=== PATIENT | female | born 1960 | race Caucasian/White ===

== ENCOUNTER 2024-10-14 10:20 | Outpatient (OUT) | payer MEDICARE, BC, SELFPAY ==
[2024-10-14 11:34] LABS: Basophils Percent Auto 0.6 % (0.2-2.0); Eosinophils Absolute Auto 0.1 10^3/uL (0.0-0.7); Eosinophils Percent Auto 1.5 % (0.9-7.0); Hematocrit 43.3 % (36.0-48.0); Hemoglobin 14.5 g/dL (12.0-16.0); Immature Granulocytes Abs Auto 0.03 10^3/uL (0.00-0.03); Immature Granulocytes Pct Auto 0.4 % (0.0-0.5); Lymphocytes Absolute Auto 2.4 10^3/uL (1.2-3.8); Lymphocytes Percent Auto 33.8 % (20.5-60.0); Mean Corpuscular HGB Conc 33.5 g/dL (29.9-35.2); Mean Corpuscular Hemoglobin 29.7 pg (26.7-34.0); Mean Corpuscular Volume 88.5 fL (81.0-99.0); Mean Platelet Volume 9.9 fL (9.5-13.5); Monocytes Absolute Auto 0.6 10^3/uL (0.3-0.8); Monocytes Percent Auto 8.1 % (1.7-12.0); Neutrophils Percent Auto 55.6 % (43.0-75.0); Platelet Count 320 10^3/uL (150-450); Red Blood Count 4.89 10^6/uL (4.20-5.40); Red Cell Distribution Width 12.2 % (11.0-15.0); White Blood Count 7.2 10^3/uL (4.0-11.0)
[2024-10-14 11:55] LABS: Alanine Aminotransferase 37 U/L (14-59); Albumin Globulin Ratio 1.1; Albumin Level 3.9 g/dL (3.4-5.0); Alkaline Phosphatase 111 U/L (46-116); Anion Gap 10.5; Aspartate Amino Transferase 19 U/L (15-37); Bilirubin Total 0.6 mg/dL (0.2-1.0); Calcium 9.7 mg/dL (8.5-10.1); Carbon Dioxide 29.9 mmol/L (21.0-32.0); Chloride 102 mmol/L (98-107); Chol HDL Ratio 2.9; Cholesterol 169 mg/dL (<=200); Estimated GFR (African America >60 (>=60 mL/min/1.73m^2); Estimated GFR (Non-African Ame 55 (>=60 mL/min/1.73m^2); Globulin 3.5 g/dL; Glucose 103 mg/dL (74-106); HDL Cholesterol 58 mg/dL (40-60); Potassium 4.4 mmol/L (3.5-5.1); Sodium 138 mmol/L (136-145); Total Protein 7.4 g/dL (6.4-8.2); Triglycerides 145 mg/dL (<=150)
[2024-10-15 07:09] LABS: Measles Antibodies, IgG >300.0 AU/mL (Immune >16.4); Mumps Abs, IgG >300.0 AU/mL (Immune >10.9)
== END 2024-10-14 10:21 | disposition home or self-care (01) ==
PROVIDERS: PCP Nurse Practitioner Family; Visit Provider Nurse Practitioner Family
DX: E78.5 Hyperlipidemia, unspecified (principal); I10 Essential (primary) hypertension; Z28.39 Other underimmunization status
CPT/HCPCS: 36415; 80053; 80061; 85025; 86735; 86762; 86765

== ENCOUNTER 2024-10-25 09:42 | Outpatient (OUT) | payer MEDICARE, BC, SELFPAY ==
--- OUTSIDE RECORDS SUMMARY | 2024-10-25 09:48 | XMS_ITS | CCD ---
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 Esthela Branham Referring Unavailable Carrol, Dr. Proctor Attending Unavailable Carrol, Dr. Proctor Primary Care Unavailable MD ESTHELA BRANHAM Primary Care Unavail able Yary, Dr. Maribel Bonilla Referring Unavailab evita Pringle, Dr. Maribel Bonilla Attending Unavailab MD ESTHELA Cunningham Referring Unavail able MD ESTHELA BRANHAM Attending Unavail able MD ESTHELA BRANHAM Primary Care Unavail able ESTHELA BRANHAM MD Attending Unavailable ESTHELA BRANHAM Primary Care Unavailable Esthela Branham MD Primary Care Provider Esthela Branham MD Unavailable [phone] ESTHELA BRANHAM Referring Unavailable ESTHELA BRANHAM Primary Care Unavailable ESTHELA BRANHAM Referring Unavailable ESTHELA BRANHAM Primary Care Unavailable ESTHELA BRANHAM Attending Unavailable ESTHELA BRANHAM Primary Care Unavailable MARIBEL PRINGLE Attending Unavailable ESTHELA BRANHAM Primary Care Unavailable Medications Current Medications Medication Drug Class(es) Dates Sig (Normalized) Sig (Original) amLODIPine 5 mg / benazepril hydrochloride 10 mg oral capsule (15 sources) Dihydropyridine Calcium Channel Eliezer, Angiotensin Converting Enzyme Inhibitor Start: 10-14-2024 End: 10-14-2024 take 1 capsule by mouth once daily Amlodipine-Benaz epril 5-10 mg capsule Active 1 CAP PO Daily 90 October 14, 2024 9:50am Start: 10-16-2020 End: 10-13-2023 take 1 capsule by mouth once daily amLODIPine-benazepriL (Lotrel) 5-10 mg capsule Indications: Benign essential hypertension Take 1 capsule by mouth once daily. 90 capsule 3 10/13/2023 Active atorvastatin 20 mg oral tablet (15 sources) HMG-CoA Reductase Inhibitor Start: 10-14-2024 End: 10-14-2024 take 1 tablet by mouth once daily Atorvastatin 20 mg tablet Active 20 MG PO Daily October 14, 2024 9:50am Start: 10-29-2020 End: 10-13-2023 take 1 tablet by mouth once daily atorvastatin (Lipitor) 20 mg tablet Indications: Mixed hyperlipidemia Take 1 tablet (20 mg) by mouth once daily. 90 tablet 3 10/13/2023 Active calcium citrate 1500 mg / cholecalciferol 250 unt oral tablet (1 source) Vitamin D Start: 10-14-2024 take 1 tablet by mouth once daily Calcium Citrate-Vitamin D3 (Citracal + D Maximum) 315 mg-6.25 mcg (250 unit) tablet Active 1 TAB PO Daily October 14, 2024 12:00am Carboxymethylcellulose Sodium (Artificial Tears (Cmc)) 1 % drops (1 source) Start: 10-14-2024 Carboxymethylcellulose Sodium (Artificial Tears (Cmc)) 1 % drops Active 1 DROPS EYE-BOTH 4-6 TIMES PER DAY as needed October 14, 2024 12:00am cycloSPORINE 0.5 mg/ml ophthalmic suspension (10 sources) Calcineurin Inhibitor Immunosuppressant Start: 10-14-2024 take 1 drop(s) into the eye(s) every twelve hours Cyclosporine 0.05 % drops Active 1 DROPS EYE-BOTH Every 12 hours October 14, 2024 12:00am Start: 02-26-2021 take 1 drop(s) into the eye(s) once daily cycloSPORINE 0.05 % Ophthalmic Emulsion INSTILL 1 DROP IN BOTH EYES EVERY 12 HOURS DAILY. Quantity: 3 Refills: 3 Ordered: 08-Feb-2022 Maribel Pringle MD Start : 26-Feb-2021 Active desonide 0.5 mg/ml topical cream (9 sources) Corticosteroid Start: 10-14-2024 Desonide 0.05 % cream Active 1 APPLIC TOPICAL .twice per week October 14, 2024 12:00am Start: 05-31-2021 Desonide 0.05 % External Cream Quantity: 60 Refills: 0 Ordered: 31-May-2021 DO Start : 31-May-2021 Active loratadine 10 mg oral tablet (1 source) Start: 10-14-2024 Loratadine (Cl aritin) 10 mg tablet Active 10 MG PO .PRN October 14, 2024 12:00am Magnesium (20 sources) Start: 10-14-2024 take 1 tablet by mouth once daily Magnesium 250 mg tablet Active 250 MG PO Daily October 14, 2024 12:00am Start: 09-03-2014 Magnesium 250 MG Oral Tablet Quantity: 0 Refills: 0 Ordered: 03-Sep-2014 DO Start : 03-Sep-2014 Active Start: 09-03-2014 Magnesium 250 MG Oral Tablet Refills: 0 DO Start : 03-Sep-2014 Active Start: 09-03-2014 Magnesium 250 MG Oral Tablet Refills: 0 Start : 03-Sep-2014 Active Multivit With Min-Folic Acid (One-A-Day Women's 50 Plus) 0.4 mg tablet (1 source) Start: 10-14-2024 take 1 tablet by mouth once Multivit With Min-Folic Acid (One-A-Day Women's 50 Plus) 0.4 mg tablet Active TAB PO October 14, 2024 12:00am pimecrolimus 10 mg/ml topical cream (9 sources) Calcineurin Inhibitor Immunosuppressant Start: 10-14-2024 Pimecrolimus 1 % cream Active 1 APPLIC TOPICAL Twice daily October 14, 2024 12:00am Start: 05-31-2021 Pimecrolimus 1 % External Cream Quantity: 100 Refills: 0 Ordered: 31-May-2021 DO Start : 31-May-2021 Active prednisoLONE acetate 10 mg/ml ophthalmic suspension (20 sources) Corticosteroid Start: 10-14-2024 take 1 drop(s) into the eye(s) once daily Prednisolone Acetate 1 % drops,suspension Active 1 DROPS EYE-BOTH Daily October 14, 2024 12:00am take 1 drop(s) into the eye(s) once daily prednisoLONE Acetate 1 % Ophthalmic Suspension Instill one drop in both eyes daily Quantity: 1 Refills: 3 Ordered: 09-Feb-2023 Maribel Pringle MD Active take 1 drop(s) into the eye(s) once daily prednisoLONE Acetate 1 % Ophthalmic Suspension Instill one drop in both eyes daily Quantity: 3 Refills: 3 Ordered: 08-Feb-2022 Maribel Pringle MD Active take 1 drop(s) into the eye(s) once daily prednisoLONE Acetate 1 % Ophthalmic Suspension Instill one drop in both eyes daily Quantity: 3 Refills: 6 Ordered: 26-Feb-2021 Maribel Pringle MD Active take 1 drop(s) into the eye(s) once daily prednisoLONE Acetate 1 % Ophthalmic Suspension Instill one drop in both eyes daily Quantity: 3 Refills: 6 Maribel Pringle MD Active 10 ML Bottle take 1 drop(s) into the eye(s) once daily in the morning prednisoLONE Acetate 1 % Ophthalmic Suspension APPLY 1 DROP Daily every morning both eyes Quantity: 3 Refills: 2 Maribel Pringle Active 10 ML Bottle take 1 drop(s) into the eye(s) once daily in the morning prednisoLONE Acetate 1 % Ophthalmic Suspension APPLY 1 DROP Daily every morning both eyes Quantity: 1 Refills: 2 Bryan Resendiz Active 10 ML Bottle sodium chloride 0.111 meq/ml nasal spray (15 sources) Start: 10-14-2024 Sodium Chlorid e (Saline Nasal) 0.65 % aerosol,spray Active 1 SPRAY INTRANASAL Twice daily as needed October 14, 2024 12:00am Start: 10-07-2019 Saline Nasal S pray 0.65 % Nasal Solution Quantity: 0 Refills: 0 Ordered: 07-Oct-2019 DO Start : 07-Oct-2019 Active Start: 10-07-2019 Saline Nasal S pray 0.65 % Nasal Solution Refills: 0 Start : 07-Oct-2019 Active 30 ML Bottle Start: 10-07-2019 Saline Nasal S pray 0.65 % Nasal Solution Refills: 0 DO Start : 07-Oct-2019 Active 30 ML Bottle Completed/Discontinued Medications Medication Drug Class(es) Dates Sig (Normalized) Sig (Original) acetaminophen 500 mg / diphenhydrAMINE hydrochloride 25 mg oral tablet (11 sources) Histamine-1 Receptor Antagonist Start: 10-09-2020 take 8 tablets by mouth in the evening Tylenol PM Extra Strength 500-25 MG Oral Tablet Quantity: 0 Refills: 0 Ordered: 09-Oct-2020 DO Start : 09-Oct-2020 Active amLODIPine 5 mg oral tablet (8 sources) Dihydropyridine Calcium Channel Eliezer Start: 02-01-2019 take 1 tablet by mouth once daily amLODIPine Besylate 5 MG Oral Tablet TAKE 1 TABLET DAILY DIRECTED. Quantity: 1 Refills: 3 Esthela Branham MD Start : 01-Feb-2019 Active 90 Tablet Bottle ascorbic acid 500 mg oral capsule (19 sources) Vitamin C Start: 09-03-2014 Vitamin C 500 MG Oral Capsule Quantity: 0 Refills: 0 Ordered: 03-Sep-2014 DO Start : 03-Sep-2014 Active Start: 09-03-2014 Vitamin C 500 MG Oral Capsule Refills: 0 Start : 03-Sep-2014 Active aspirin 81 mg delayed release oral tablet (5 sources) Platelet Aggregation Inhibitor, Nonsteroidal Anti-inflammatory Drug Start: 12-03-2018 Aspirin 81 MG Ora l Tablet Delayed Release Refills: 0 Start : 03-Dec-2018 Active Citracal Plus Oral Tablet (9 sources) Start: 09-03-2014 Citracal Plus Oral Tablet Refills: 0 DO Start : 03-Sep-2014 Active Start: 09-03-2014 Citracal Plus Oral Tablet Refills: 0 Start : 03-Sep-2014 Active Citracal Plus Oral Tablet (10 sources) Start: 09-03-2014 Citracal Plus Oral Tablet Quantity: 0 Refills: 0 Ordered: 03-Sep-2014 DO Start : 03-Sep-2014 Active cycloSPORINE 0.05 % Ophthalmic Emulsion (1 source) Start: 02-26-2021 take 1 drop(s) into the eye(s) once daily cycloSPORINE 0.05 % Ophthalmic Emulsion INSTILL 1 DROP IN BOTH EYES EVERY 12 HOURS DAILY. Quantity: 3 Refills: 3 Ordered: 09-Feb-2023 Maribel Pringle MD Start : 26-Feb-2021 Active dextran 70 1 mg/ml / hypromellose 3 mg/ml ophthalmic solution (19 sources) Plasma Volume Cottage Parent Artificial Tears 0.1-0.3 % Ophthalmic Solution INSTILL 1 DROP TO BOTH EYES 2 X DAY Quantity: 0 Refills: 0 Ordered: 13-Mar-2019 DO Active diphenhydrAMINE hydrochloride 25 mg oral tablet (11 sources) Histamine-1 Receptor Antagonist Start: 10-09-2020 Benadryl Allergy 25 MG Oral Tablet Quantity: 0 Refills: 0 Ordered: 09-Oct-2020 DO Start : 09-Oct-2020 Active Start: 10-09-2020 Benadryl Aller gy 25 MG Oral Tablet Refills: 0 Start : 09-Oct-2020 Active docosahexaenoic acid 120 mg / eicosapentaenoic acid 180 mg oral capsule (11 sources) Start: 09-03-2014 Fish Oil Janine ntrate 1000 MG Oral Capsule Quantity: 0 Refills: 0 Ordered: 03-Sep-2014 DO Start : 03-Sep-2014 Active Start: 09-03-2014 Fish Oil Janine ntrate 1000 MG Oral Capsule Refills: 0 Start : 03-Sep-2014 Active doxycycline hyclate 100 mg oral capsule (8 sources) Tetracycline-class Drug Start: 05-31-2021 Doxycy goyal Hyclate 100 MG Oral Capsule Quantity: 60 Refills: 0 Ordered: 31-May-2021 DO Start : 31-May-2021 Active Multivitamins CAPS (8 sources) Start: 09-03-2014 Multivitamins CAPS Quantity: 0 Refills: 0 Ordered: 03-Sep-2014 DO Start : 03-Sep-2014 Active Multivitamins Oral Capsule (9 sources) Start: 09-03-2014 Multivitamins Oral Capsule Refills: 0 DO Start : 03-Sep-2014 Active Start: 09-03-2014 Multivitamins Oral Capsule Refills: 0 Start : 03-Sep-2014 Active Multivitamins Oral Capsule (2 sources) Start: 09-03-2014 Multivitamins Oral Capsule Quantity: 0 Refills: 0 Ordered: 03-Sep-2014 DO Start : 03-Sep-2014 Active omega-3 acid ethyl esters (longterm) 1000 mg oral capsule (8 sources) Start: 09-03-2014 Fish Oil Janine ntrate 1000 MG Oral Capsule Refills: 0 DO Start : 03-Sep-2014 Active triamcinolone acetonide 1 mg/ml topical cream (19 sources) Corticosteroid Start: 01-27-2017 Triamcinolone Acetonide 0.1 % External Cream APPLY AND RUB IN A THIN FILM TO AFFECTED AREAS TWICE DAILY.(AM AND PM). Quantity: 1 Refills: 1 Ordered: 27-Jan-2017 Esthela Branham MD Start : 27-Jan-2017 Active Start: 01-27-2017 Triamcinolone Acetonide 0.1 % External Cream APPLY AND RUB IN A THIN FILM TO AFFECTED AREAS TWICE DAILY.(AM AND PM). Quantity: 1 Refills: 1 Esthela Branham MD Start : 27-Jan-2017 Active 45 GM Tube Problems Active Problems Problem Classification Problem Date Documented Date Episodic/Chronic Allergic reactions (19 sources) Atopic dermatitis; Translations: [Other atopic dermatitis and related conditions] Chronic Anxiety disorders (19 sources) Anxiety; Translations: [Anxiety state, unspecified] Chronic Cataract (20 sources) After-cataract with vision obscured; Translations: [Pseudophakia] Onset: 4 Chronic Complications of surgical procedures or medical care (2 sources) Not up to date with immunizations; Translations: [Delinquent immunization status] 10-14-2024 Episodic Disorders of lipid metabolism (17 sources) Hyperlipidemia; Translations: [Other and unspecified hyperlipidemia] Onset: 4 10-13-2023 Chronic Essential hypertension (20 sources) Benign essential hypertension; Translations: [Benign essential hypertension] Onset: 4 10-13-2023 Chronic Inflammation; infection of eye (except that caused by tuberculosis or sexually transmitteddisease) (11 sources) Unspecified blepharitis right eye, unspecified eyelid; Translations: [Blepharitis of right eyelid] Episodic Malaise and fatigue (8 sources) Fatigue; Translations: [Chronic fatigue] Episodic Other connective tissue disease (19 sources) Ganglion of wrist; Translations: [Ganglion of joint] Episodic Other eye disorders (9 sources) H/O: cornea recipient; 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 Other eye disorders (2 sources) Corneal transplant status; Translations: [Corneal transplant status] Onset: 4 Chronic Other eye disorders (19 sources) Fuchs' corneal dystrophy; 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] Episodic Other eye disorders (10 sources) Dry eye syndrome of right eye; Translations: [Tear film insufficiency, unspecified] Episodic Other eye disorders (10 sources) Dry eye syndrome of left eye; Translations: [Tear film insufficiency, unspecified] Episodic Other nervous system disorders (1 source) Pain in limb - multiple; Translations: [Paresthesia of skin] 10-14-2024 Episodic Other nervous system disorders (1 source) Paresthesia of skin; Translations: [Disturbance of skin sensation] 10-14-2024 Episodic Other nutritional; endocrine; and metabolic disorders (3 sources) Overweight in adulthood with body mass index of 25 or more but less than 30; Translations: [Overweight] Episodic Poisoning by other medications and drugs (17 sources) Vaccines adverse reaction; Translations: [Other and unspecified vaccines and biological substances causing adverse effects in therapeutic use] Episodic Residual codes; unclassified (1 source) Postmenopausal state; Translations: [Asymptomatic menopausal state] 10-13-2023 Episodic Screening and history of mental health and substance abuse codes (19 sources) H/O: depression; Translations: [Personal history of other mental disorders] Episodic Systemic lupus erythematosus and connective tissue disorders (20 sources) Keratoconjunctivitis sicca; Translations: [Keratoconjunctivitis sicca, not specified as Sjogren's] Onset: 10-13-2023 Chronic Past or Other Problems Problem Classification Problem Date Documented Da te Episodic/Chronic Cataract (8 sources) Pseudophakia of right eye; Translations: [History of Pseudophakia of right eye] Diabetes mellitus without complication (4 sources) Prediabetes; Translations: [Prediabetes] Onset: 10-13-2023 10-13-2023 Episodic E Codes: Fall (10 sources) Accidental fall ; Translations: [Unspecified fall] Resolved: 10-29-2020 Episodic External cause codes: Fall (5 sources) Accidental fall ; Translations: [Accidental fall] Immunizations and screening for infectious disease (3 sources) Viral screening status; Translations: [Encounter for screening for other viral diseases] Onset: 10-13-2023 10-13-2023 Episodic Inflammation; infection of eye (except that caused by tuberculosis or sexually transmitteddisease) (8 sources) Blepharitis of right eyelid; Translations: [Blepharitis of right eye] Mood disorders (1 source) Recurrent major depression in remission; Translations: [Major depressive disorder, recurrent, in remission, unspecified] Onset: 10-13-2023 Resolved: 10-13-2023 10-13-2023 Chronic Nonspecific chest pain (19 sources) Chest discomfort; Translations: [Other chest pain] Resolved: 10-29-2020 Episodic Other connective tissue disease (19 sources) Hand pain; Translations: [Pain in limb] Resolved: 10-29-2020 Episodic Other connective tissue disease (11 sources) Trigger thumb, right thumb; Translations: [Trigger thumb of right hand] Resolved: 10-29-2020 Episodic Other connective tissue disease (8 sources) Trigger thumb of right hand; Translations: [Trigger thumb of right hand] Other eye disorders (7 sources) Tear film insufficiency; Translations: [Dry eye syndrome of left lacrimal gland] Episodic Other eye disorders (2 sources) Dry eye syndrome of unspecified lacrimal gland; Translations: [Dry eye syndrome of unspecified lacrimal gland] Onset: 02-13-2024 Episodic Other eye disorders (6 sources) Dry eye syndrome of right eye; Translations: [Dry eye syndrome of right lacrimal gland] Other eye disorders (5 sources) Dry eye syndrome of left eye; Translations: [Dry eye syndrome of left lacrimal gland] Other female genital disorders (19 sources) Endocervical polyp; Translations: [Mucous polyp of cervix] Resolved: 10-29-2020 Episodic Other injuries and conditions due to external causes (16 sources) Injury of ankle; Translations: [Knee, leg, ankle, and foot injury] Resolved: 10-29-2020 Episodic Other lower respiratory disease (19 sources) Dyspnea on exertion; Translations: [Other respiratory abnormalities] Resolved: 10-29-2020 Episodic Other non-traumatic joint disorders (19 sources) Pain in wrist; Translations: [Pain in joint, forearm] Resolved: 10-29-2020 Episodic Other nutritional; endocrine; and metabolic disorders (19 sources) Excessive thirst; Translations: [Polydipsia] Resolved: 10-29-2020 Episodic Other screening for suspected conditions (not mental disorders or infectious disease) (20 sources) Patient encounter status; Translations: [Screening for malignant neoplasms of cervix] Onset: 10-28-2022 Episodic Residual codes; unclassified (10 sources) History of clinical finding in subject; Translations: [Personal history of other specified diseases] Resolved: 10-29-2020 Episodic Residual codes; unclassified (6 sources) Body mass index 20-24 - normal; Translations: [Body Mass Index between 19-24, adult] Resolved: 10-25-2022 Episodic Residual codes; unclassified (4 sources) Asymptomatic menopausal state; Translations: [Asymptomatic menopausal state] Onset: 10-13-2023 Episodic Superficial injury; contusion (15 sources) Contusion of face; Translations: [Contusion of face, scalp, and neck except eye(s)] Resolved: 10-29-2020 Episodic Unclassified (5 sources) Patient encounter status; Translations: [Encounter for screening for cervical cancer] Unclassified (1 source) History of clinical finding in subject; Translations: [History of chronic fatigue] Unclassified (1 source) Onset: 10-13-2023 10-13-2023 NEGATED: Highlighted row has not occurred!Residual codes; unclassified (20 sources) Disease Episodic Results Test Name Value Interpretation Reference Range Facility BI MAMMO BILATERAL SCREENING TOMOSYNTHESISon 11-09-2023 BI MAMMO BILATERAL SCREENING TOMOSYNTHESIS Interpreted By: Monster Blake, STUDY: BI MAMMO BILATERAL SCREENING TOMOSYNTHESIS; 11/09/2023 9:22 am ACCESSION NUMBER(S): [id number] ORDERING CLINICIAN: ESTHELA BRANHAM INDICATION: Screening. COMPARISON: 10/28/2022 FINDINGS: 2D and tomosynthesis images were reviewed at 1 mm slice thickness. Density: The breast tissue is heterogeneously dense, which may obscure small masses. No suspicious masses or calcifications are identified. There are stable areas of asymmetry bilaterally. This study was interpreted with CAD. IMPRESSION: No mammographic evidence of malignancy. BI-RADS CATEGORY: BI-RADS Category: 1 Negative. Recommendation: Annual Screening. Recommended Date: 1 Year. Laterality: Bilateral. For any future breast imaging appointments, please call [phone]). MACRO: None Signed by: Monster Blake 11/09/2023 9:25 AM Dictation workstation: [id number] [facility] DEXA BONE DENSITYon 11-09-19 DEXA BONE DENSITY Interpreted By: Satish Valverde, STUDY: DEXA BONE DENSITY11/09/2023 9:21 am INDICATION: Signs/Symptoms:scsree jordyn. The patient is a 63 y/o year old F. COMPARISON: None. ACCESSION NUMBER(S): [id number] ORDERING CLINICIAN: ESTHELA BRANHAM TECHNIQUE: DEXA BONE DENSITY FINDINGS: SPINE L1-L4 Bone Mineral Density: 1.139 T-Score -0.4 Z-Score 0.9 Bone Mineral Density change vs baseline: Not reported Bone Mineral Density change vs previous: Not reported LEFT FEMUR -TOTAL Bone Mineral Density: 0.865 T-Score -1.1 Z-Score -0.1 Bone Mineral Density change vs baseline: Not reported Bone Mineral Density change vs previous: Not reported LEFT FEMUR -NECK Bone Mineral Density: 0.847 T-Score -1.4 Z-Score 0.0 Bone Mineral Density change vs baseline: Not reported Bone Mineral Density change vs previous: Not reported World Health Organization (WHO) criteria for post-menopausal, Women: Normal: T-score at or above -1 SD Osteopenia: T-score between -1 and -2.5 SD Osteoporosis: T-score at or below -2.5 SD 10-year Fracture Risk: Major Osteoporotic Fracture 8.7 Hip Fracture 0.9 Note: If no FRAX score is reported, it is because: Some T-score for Spine Total or Hip Total or Femoral Neck at or below -2.5 This exam was performed at [facility] on a [email or web address] Dexa Unit. IMPRESSION: DEXA: According to World Health Organization criteria, classification is low bone mass (osteopenia) Followup recommended in two years or sooner as clinically warranted. All images and detailed analysis are available on the Radiology PACS. MACRO: None Signed by: Satish Valverde 11/09/2023 10:02 AM Dictation workstation: [id number] [facility] Cytology Cervical or vaginal smear or scraping studyOrdered By: Amy Jimenez on 10-31-2023 Cytology study comment Cyto stain Anthony (Cvx/Vag) [Interp] m6gexFFvOEMmiRIvDoVgZ ZKzCPGxa6adJMLbtGIoJd EwMzNcZnRuYmpcdWMxXGR lBnRsi3bjq792nSFxs9zz UWFcWrA6nLHyUGQnC57zP MDMG861PRMwSMuqs8mul1 EdEHYklJAog5R2HPMVXXj rYIQOTZh6s8zdGoYhXnX0 mBYcQWcvO1twafOupGBpN XJhDMh0dE17DGJjvD6whP FcZYgupfSdBlE8BAtbRZE qFnR6ETVgiMOxTAAaT4ed ZWQwXGdyZWVuMFxibHVlM VT0YSXnTSW7ZEztOWKiBC KtDag9KEY3AYb2h2ekoDm bPNHxLFT8u4mvXNgeehWf MN7ztf1tfVt0v2ijfdNuW JQcNSMuhJRCDGQrT4TltA qvAp6keWc4dAbcOqodAYP 8Ang6QX4gfo58xgx5jRgy FXTurtghZsM2VIubMQTgq hnjFNf4ZJkfDAJuoSS2AE YjqAKaM5DlBSZaFU5ggql 1GBU8XXcvNMNiFvF6HCPq fOLhSSZlfRgdCZdnw767R HY5NhGwAX0zO2Him5D9gP 9maXRcZGVmdGFiNzIwXGZ xas5alJEtKHdun4NkRNK4 kwM6dDHefTFkJNUnUB46D idgk4FrUxqoZDH8QHNgrj Vui3Rmh6jnEiRittFyF6d xD2HmIYIwVLMzXPWnQgLi kgYhl3Acr9DmlQObcKp9j 3rzKGVlVRDxyPqfl2qdBK T5ZUEyW7D1kYDpb5jgVMt wPCLryIJ9jzP8UVRtiKYf J6IgeV2fFTScVM9skbl7l 1vrBDT0VWumAPLmQwI0ux Q3BKGkcVWcHCIgrZgyEHw vg391JBU7VsBpNJTar3Eg A7YkyOhuH97heSheE81aB JSnpXjnzJ3sgCpvyH7bTt JkAhTzTZoqX2oatHWrglt oYBwakvS1WAuzwbtuALWd ASeoV8bgNwPjVQMpnYzgE Ezhi1EbLWIhDYJbHrplcs L4ZOJkqBxqCJHpKOpsECR xXGZzMjBcbGFuZzEwMzNc aGljaFxmMVxkYmNoXGYxX QqqX2euKpVtW3OiAXQzNb DvQff9kRcoCHDezRoxlXj gwD1wVeNuEqKnVQpxiTHb blxmMVxmczIwXGxhbmcxM JFdZCrkV0usHoUuSRPnsR agYRqqt0BfDDAlIEXkO8h mczIwXHBhciBBLiBUSElO PZTADTCHHJLwG2LPGelZF ZCQL7EQRK0ZZvhxRVEovQ FyXHBhclxwbGFpblxmMVx mczIwXGxhbmcxMDMzXGhp U1moEpNkUQYtbVvxUEpkj 4NcYSPvCCCwC8llhdSgKQ SwU7OkT0uoEB1oEKSnzFY xV7kdeMmyeN5jPwHxQbVs HGuvYM1oPNQqT9qhcMNgO TRcUNIuA9ljJtHjkF6orM xmMVxjZjNcZnMyMFxwYXI ry3lymLJrFLTtl3bwMGTt bGFuZzEwMzNcZnRuYmpcd ZOrt8xxk661vFYgRVlqEs OcLGlur6ggl9EsCHUieQK sz4B4ABVJQZdmQFLJOJn0 fVxmMVxmczIwIFNhdGlzZ cVgzW4jiPVrl9FcQAJtsV CmiJqbijnaUK0tz2AyurP nG4EyS3RmDT8lAp0skOJ2 kJ9lAJiygvDeZ43uwQ2zL V25ESwdDSYyKICypeJwzE WtZF3opCEdZFXcclSnlSz jgC6aGcSgSkUkXHrsxTTs blxmMVxmczIwXGxhbmcxM MYzQPzkI7ltKqRkQTNbgU qrUXfzg9LiQSXnGKJkB8t dtiVeSVMfJ4DaMXOgcUSK PXAaP42zzTxtpKjnajutg GFpblxmMVxmczIwXGxhbm vuVWEuUDlrE5bfTcMaTSE lsAgiBFqtm4SfOGTaWIYj E6jdrqNhNSIxjqB9KNE2A lChIZ2lbHrvINYfSU6gQR IpP6fasG5azjq1JkW0XVK mmaO1Xfruy5fsFGUkPPSb e6nhzxHhAfCxPYClOYUoY QDoX69rUATSJ690ZMDoCX ZzMjAgTmVnYXRpdmUgZm9 yIGludHJhZXBpdGhlbGlh bDIkDRFlu03kn3GyhMUps KvkOA5xjN4riTKdWI5ivA imlN6tToWvWwZdLIjsIB7 oYRXuF3zhrPVxLNCrLFHu X3vwPaIduU3vsMowMRefP jNcZnMyMFxiXHBhciBEZX CfflfaoFy9XEGMgnSzxaQ yZXRhdGlvblxwbGFpblxm MVxmczIwXGxhbmcxMDMzX BgjA7mrLxMvXOSrsKnuVW xnk6CnPTIjOPDyH5rxmrM gBUGoepT8LTL9NkRzKC2u yBgkSBNhLB5rORLkU7uur X2bnah6FcE3KVAgtrO5Rj jbd0qzJGBmLEGpe2pzszF qGyRcJECwVFNeXMNjF61t BPGXH717PZBgURVrMwSmY rGeRDWomvDcYq3pJSfdrE JhZXBpdGhlbGlhbCBsZXN xb17ri0NlmBQefJelLL5w eVxwYXIgfXtccnRmMVxhb nNpXGRlZmxhbmcxMDMzXG J0yxXaBFNxUVtyZn5xfXQ acYC1AQSjEIEuUsE5aROd UJdcK0vbmkZfoHUhT1Ita 8SlWIl9mB9kApTqScYzNE O3p0amlXHrUVIiv7ldTPX mbGFuZzEwMzNcZnRuYmpc hJDjb0msx078yVJwTRpoE cAdQNmke2wdr0GjVXRdkW Zhi8J0MRYFCDymYSBVAEs 8bPkyYGflewYyVH6bpADh MQGuzzE5LRS4AhLpOM2mf TjsIETcHF4zPJWzZ8raeS 6lbxi8AwX0NJJsbbJ6Jea fs6sxVYUwDJHfz0vsowNg BzHaUDQvXEMuFDGsL23jC RYTG617CUYyDOLaYnYsL0 GyD2tmQV3lNZ6slmHof3V dsWXxsVX7lGKghjGzhWmc vHDic82er5DheVVnAVNwl XRlcmlhIGZvciBIUFYgdG BnwBmgWr2sV7XtGNJryAI 7NVB9WHwpjCHuwADfeLO4 sN7qAWCoz1QwZfzvPAVox VxwbGFpblxmMlxmczIwXG wphwdaKPZoGTevP2bkVmT hIDUrxDzmSzcir2XfJOIc KWCjX6xuamQxFJOtfz5= [facility] Include HPV Genotype? Yes [facility] Laboratory comment Anthony (Report) w6uheWDaSNFen0riOXNhe GFuZzEwMzNcZnRuYmpcdW MxIHtccnRmMVxhbnNpXGR qAhhifsqqMMAmCTN2jkWs IAFeAYZ7HQN4FkIbLQ0oq XhoGUSpJZ8vRSCuC9liwY 9ctcb0RwUxl9hleHNmNVJ dbRBtStVyTEQgOGIeb3og ZGVmbGFuZzEwMzNcZnRuY zuvmJFmDXPuHfRap6dyg9 68aZImo3bjYSTwSfR0cZS xXNBbE36aYZHBR216QDFh LZofk1qyq5PqWJUvkLHor 3K3MWAXKSonYTUGOBg4vW ipA23wp2E1HcudE7tnPBQ xWBGwQ5UgLD3nYMEuNym5 VIQ2NUU1LRFvCUSqJ0GdM X7vCMOcbMYmMQd6n1ahlR zpLKZuZAE0w9ioVDxuldO uLD5fwy3sjOn4o6bnrqZu FJJgWYVlpEGCDKFzI0Cnm KteNt9wjQn4rHekReqyKB M1Szh9EA4oya16xjj6tFb dIPMyedmmRiL5GTmrONXe ljqfQEv0QBsjIPPhsIP4U ORhlZOgJ2AxNRNsYB1zzk k6YTL7FCqtCBUeWuV8BWW rbYLgENVpzOsuJGdus763 YZM3CaRoON3dL4Akv2M8g S7iaOZxVKFvuBRfVwPiOJ Fufm4pgPYyVIsgt1WrNEH 7duF8nHDisUJxIHUgZE26 Cazip0MsHetcJQB0KZMwt pRxo0Ycw4zlMuJpzmSeY6 ybK6ZuIXYrMMBlBWJoQvC jhsZkn1Oju4GyaQKnuMq1 o6uwBKYqPMHzrLnaj2utP GT6RJZnW6P0jSGjl9zhKT anTCInkIR8etC8DMBfyKZ gM7VklI5ySCHrZY4gaqd0 x9siOEU7ZFnbSCSfTgP7i vZ7DFJypSLyOQPhuPkwSL pzl240MBM2KdBqVFUcv8A pL0TjlTpdK28nrFguX24t UOJihPnnuV6uiXllmX5dK jBcZnMyNFxxbFxwbGFpbl xmMVxmczIwXGxhbmcxMDM fIXriO9keCnMvPSYgtBdh OKejo8CbCZGsMMWmAtzno zIwIFNsaWRlKHMpIGluaX XuKStdrNCyB6BeRR5yYZB ykCFQPPpze4KxYPW1URUF VCBhdCBDTUMgTUVESUNBT JXCRP4CVKYcMDOhUFTxEY XWQIyDGDYSUQrhGZUrL3h IWlTUGO0LEY9UHCW2XYN1 CVC3UYZthWuvzW9yNlEdA uAdNmpsAT9eWTKlK0fjbY UvHFUgYPPeD8lkYyOiyC2 roIceWNaavoQtPAZryv51 y8jaxFMpEEVwiAUrBmDuU EMgHJUow3omCBRrkXDrUw EwMzNcZnRuYmpcdWMxXGR rFfZyy9whh017vOIeu1pg SWMsLcK2pQRlKSHoB83wV IIQM874SJSvIOrpu0mml9 YbWGLlaXIyr0E2QALVUHy dHOQULVz8pMwtI40ea9H6 MwdlK5xcCSMrRAhaVYKjH SqcyIOsBUO6BVZhINR2BG ybufSzmvL4GSrhjCXbLmR 2KZc0f9tswOqxQYUcQFL1 s7cbVAuqfuUxPB5byf3nl Lj9x6xcphMuPLIuLPPdaR XZTPZhF1SdiMbiGa6eyYp 2pXopAidjYYV0Upf9ZT2u ex71hfy6dZdySWMqfgqzG sH5QKqfNHDtqkslEAw0SG atWBVegNP6UUMduPHdK3M nITKaVT3asci2PDH5UDuk GKHoIrC2GHZaaTIoMFBuf YdtULbdt374YYU9FwDxBK 0bA8Moi3G4tV5ynRBnBQA doNBbRfRjSWGvjc8reJId QIzoj1LaXUE7qnG5wPYwr ZYtQYQqER26Lmvdr6QvBr dyAKV4LFIlwnTxt5Mnh8e mChOlxhIkP3lkR1NcXZLm NAXyRPEtHlRdwkDla9Evo 6ShlTRbnVw2d0ojCTDaLJ MaeBvee4xuJFN1HWJwZ9B 0yHWnv0isXNcbKVNkfVL6 kkQ5QXOwgRAsX5TzaN6oW ZWmSE7hcby7y6gbBFQ9VN maXXDdSsH6hjO7TQNsqBZ hVTYfcGzvQGmka072HLI5 IpVtEUMss9EiI1WivSeuO 82ntEmwS64cMISpxGpynR 1axDfnoS1zVdKmStYaCds xbFxwbGFpblxmMFxmczIy XHBsYWluXGYxXGZzMjBcb GFuZzEwMzNcaGljaFxmMV bfVeFkXUXwYHafB6ipZqT kL6FsMISpNiQiDRBpbwY7 tAD5SKHjplDrcn6xWKCqo SBTaGFyaSBEaWNrLCBDVC BhdCBDTUMgTUVESUNBTCB UJS0MERWnRZTrAXQRPAYK SUQgQVZFXHBhciBDTEVWR HwDOkQmI5lnOIEnKVXrOE cxNlxwbGFpblxmMFxmczI eWTDgxm92w4kcnHLdOBDl tLIlMeQmQVDaLVKfc7miO GVmbGFuZzEwMzNcZnRuYm jupYDnOOVmWoPia3ybi61 8dGBwz6arFNOsEgB8mMIt ULCtM76kQVGIX830UWPaM Tiwv1gtn5KqSSVuePRry2 O1GHUYSHhtPVYBTQp1fEa wC86wm0K5ZfeiU1ezSXRs JBRzP9FtMQ5dQJTbVyw9X FR5CKS5ZGAiYDDwV5OnRJ 5hJNZklFExQSt2e7fdnWb oWNBvDYA2q5bvJYulhvBp EA9bpq7yeCn2i6jissPrA TIoSUZzhZUHQQIjQ8XhyK dwHn4qnFg8xHubQlphTWF 7Tms7XC3byb39ctx0kUrw BCKmwqoqZrX4UEhcPHHls claSZn5BRyzPIXbkRT7MI ieETQcsxC3FHtmLFHooJY 4URkqENUdNqS3FRjbCSNg SPY6VqPqINLrv5PjmmxsW yTanu0qee27ANN4g6XdhE jbQYZ6EUF3ZxNeUn0saWI qVWMqNL3rTwKsjIVoNFIb bb83hWqvATbmgwNmbI3cA oRxPLJpyVLtRNOvNJ0djX IsCHCghR2kmdxvCRWiHtE lanslXELajQfvbqRfTl2a oBwsHPM8POljF3yizQ0vD mW4NLtpJ0uyjU7fWOh2IA fwpEB3HNOzkA8hYZ1xdlq og0wyNxErKJ4hjhmye5ot YuEeOU5adip8v5pbEgKvO W2mmvahq1epFsLkZMjxOK NbhaokVcTqZs9xbRUcoVQ 2MFxzYmtwYWdlXHBnbmNv bnRccGduZGVjXHBsYWluX HBsYWluXGYwXGZzMjRccW fscDazlL4aYhBtLpHvOIw aUL2ePGBcQ7nccKQjCDGm LWFgL0kcOoVabR3hiYflW DglmfJtLKV4QYMnEUQpbJ shSQL6coHox64rzGegiqX yZXBvcnQsIHRoZSBpbmRp qprgnSRgIW9zCOwzl3ZmW Qpgx2PbCLUaomPoFTzvqg cgdGhlIEZpbmFsIEludGV hyKUlmWR2eG8bR5TaLIpd m3AzyoGzTIW4pITjRDFjb TshyQO5zXG5JRfdigBayu O2kUB1SJFyeHbclyTdIER lLiBccGFyfX0= [facility] comment Anthony (Report) u3npzZDyIQWdi7fxBRDeb GFuZzEwMzNcZnRuYmpcdW DrMCrccdCpUAlnx7OyX3I yMjAwMFxhbnNpXGRlZmxh ivdvGHYeHOW8hnTsRSOgI YnxOSVpUCgoQx8abVUacA hqJjHnXMUin7ehmuWWQXw zMWGINRo6q0fnPKMpZmJ1 oLBcUBtnI0hayfGigZXfU IMlXMv2pTsoXzJvYYZqk4 lzcyBcZmNoYXJzZXQwIFN qG75lYUCLH681k8kdl6db tcKxdMK5EBGqHZZ6JPmyu dZckkP0DVeznZKqFuU5SV tccmVkMFxncmVlbjBcYmx 1RRCqZ080OQH7mGaev4he VAD4WKUfCJCrEsGvVq0fz ELsS552BQElGVLAMPFhlB z2DQZupqGmxuYzpRKZx25 8S633k2hoRXWinlRepVxL azeto5inT170MXYreMKgw gJnNlGcZUVqsSRhyXD1KD TrQE6txprkRNdhJVtvXFS wzbW1SKZwrAJmC1KuTMTt CW3vexlhDXY1NFnlQZDqN UQ9SwPwARNae1Tenxw3Vi Pmto7dog21RQQ0d6RvoRl tWEM6GLO6TwUzRb1gtLZb RFHzHL4lMoOqbSXvKKTtj x28hUkkGLthxbFmlP5dUo FwJZRldPLtYMAeHW9luFG oQKXswG5uabdsOYCySgYs giwgXKUoaAtrojObLb3sv SwcLRF2JDvcU1hqeT2kJq S3ISwhN9qziC8gDXz2ONr qnCG4ZZTgtA8sZZ7vtqoq y7ejRTkqSKgnOAChsxS0l lU0RXCmdJVkO3PhgU5cZO FyTH5wwhqti3cjQXN3IPv dRVJmRYA4AmBoJFTct0Yr yop8XqHdx8MlrJBhXFezV 23xj473HVAbuwLzH9buzW FpblxwbGFpblxmMFxmczI 0XHFsXHBsYWluXGYxXGZz MThcbGFuZzEwMzNcaGlja FxmMVxkYmNoXGYxXGxvY2 oiQnBuL1VpKJPhRCxfjLH UaGlzIHNwZWNpbWVuIGhh fsKtGZDtSKOvVIi9auXtC QK2QQTrTNDAjMlvHTKqgN LPsPBwuB9rAUL9s8CjjOD vJS1ho8ugRpsmOG3nIbog XYWzLVH4xK9qTEZoMSAcg JGxcK8qMQHkLEOgZMRdWD wix5lmuFLnEDM8kBndaDL ba0Ynr5EoPHSdCVLsBOFi vuM5h3W2IIgfOOE9EIx5P GHdilqnN7UirPHgm83fMY zszpFsKYWkLNAaDODgs0V oZrZQg1fcr2nnsgehWQG8 b65wlGSyLRguAWtvhayfE HNlbGVjdGVkIGZpZWxkcy Gygs5bKDJ2WHP7CHTneSH jFIngvkUrkdA6bYD3VNCc EvpmOWCkyTVboILuhJ8xl E9izDU3WITeCD7prrCoIF Opa2rmI0nijN4tfFfagR0 kOnHgQtCvHiaiTZ7yPSEh P3sydGQcKGQbHYMeO0vyT wVlxF8luJpyArtwwyZtAB CeqjbeTPT0iT== [facility] Last menstrual period start date 10/02/2014 [facility] Pathology report Cancer Narrative Gynecologic Cytology Case: [id number] Authorizing Provider: Esthela Branham MD Collected: 10/13/2023 1142 Ordering Location: [facility] Received: 10/13/2023 1142 First Screen: Celconsuelo Castillo, CT Rescreen: SAUL Banks Specimen: ThinPrep Liquid-Based Pap-Imaging System Screen, CERVIX, SCREENING [facility] Perform HPV HR test? Reflex if ASCUS only [facility] COMPMETAon 10-13-2023 Albumin [Mass/Vol] 4.3 g/dL Normal 3.4-5.0 [facility] Comment on above: Performed By: #### 1 [id number], [id number] #### [facility] [address] [place] [address] Soil Conservation Aide: Azam Rice MD Albumin/Globulin [Mass ratio] 1.3 {ratio} Normal [facility] Comment on above: Performed By: #### 1 77036, [id number] #### [facility] [address] [place] [address] Soil Conservation Aide: Azam Rice MD Alk Phos 103 unit/L Normal 45-117 [facility] Comment on above: Performed By: #### 1 85203, [id number] #### [facility] [address] [place], [place] [id number] Soil Conservation Aide: Azam Rice MD Bilirubin [Mass/Vol] 0.70 mg/dL Normal 0.30-1.20 [facility] Comment on above: Result Comment: Use of this assay is not recommended for patients undergoing treatment with eltrombopag due to the potential for falsely elevated results. Performed By: #### 1 79034, [id number] #### [facility] [address] [place] [address] Soil Conservation Aide: Azam Rice MD Calcium [Mass/Vol] 10.7 mg/dL High 8.7-10.4 [facility] Comment on above: Performed By: #### 1 80692, [id number] #### [facility] [address] [place] [address] Soil Conservation Aide: Azam Rice MD Chloride [Moles/Vol] 103 mmol/L Normal 98-107 [facility] Comment on above: Performed By: #### 1 77566, [id number] #### [facility] [address] [place] [address] So[employer] Aide: Azam Rice MD CO2 [Moles/Vol] 28.0 mmol/L Normal 20.0-31.0 [facility] Comment on above: Performed By: #### 1 42908, [id number] #### [facility] [address] [place] [address] Soil [employer] Aide: Azam Rice MD Creatinine [Mass/Vol] 0.9 mg/dL High 0.5-0.8 [facility] Comment on above: Performed By: #### 1 17684, [id number] #### [facility] [address] [place] [address] Soil Conservation Aide: Azam Rice MD GFR AA >60 Normal [facility] Comment on above: Result Comment: Afri can Barbadian GFR Calc Medical judgement is necessary to interpret GFR. The calculated GFR may not accurately reflect renal status in patients >70 years, women, acutely ill hospitalized patients and patients with acute renal failure or known renal disease. The MDRD GFR formula is valid only for adults greater than 18 years of age. Note: Creatinine clearance (not GFR) should be used for drug dosing. Performed By: #### 1 74963, [id number] #### [facility] [address] [place] [address] Soil Conservation Aide: Azam Rice MD Globulin (S) [Mass/Vol] 3.4 g/dL Normal [facility] Comment on above: Performed By: #### 1 91819, [id number] #### [facility] [address] [place] [address] Soil Conservation Aide: Azam Rice MD Glomerular Filtration Rate >60 Normal [facility] Comment on above: Result Comment: Non- GFR Calc Medical judgement is necessary to interpret GFR. The calculated GFR may not accurately reflect renal status in patients >70 years, women, acutely ill hospitalized patients and patients with acute renal failure or known renal disease. The MDRD GFR formula is valid only for adults greater than 18 years of age. Note: Creatinine clearance (not GFR) should be used for drug dosing. Performed By: #### 1 66410, [id number] #### [facility] [address] [place] [address] Soil Conservation Aide: Azam Rice MD Glucose [Mass/Vol] 102 mg/dL Normal 74-106 [facility] Comment on above: Performed By: #### 1 05318, [id number] #### [facility] [address] [place] [address] Soil Conservation Aide: Azam Rice MD GOT 26 unit/L Normal 15-37 [facility] Comment on above: Performed By: #### 1 42547, [id number] #### [facility] [address] [place] [address] Soil Conservation Aide: Azam Rice MD GPT 39 unit/L Normal 10-49 [facility] Comment on above: Performed By: #### 1 70972, [id number] #### [facility] [address] [place] [address] Soil Conservation Aide: Azam Rice MD Osmolality [Osmolality] 276 mosm/kg Normal 275-295 [facility] Comment on above: Performed By: #### 1 79508, [id number] #### [facility] [address] [place] [address] Soil Conservation Aide: Azam Rice MD Potassium [Moles/Vol] 4.7 mmol/L Normal 3.5-5.1 [facility] Comment on above: Performed By: #### 1 52228, [id number] #### [facility] [address] [place] [address] Soil Conservation Aide: Azam Rice MD Protein [Mass/Vol] 7.7 g/dL Normal 5.7-8.2 [facility] Comment on above: Result Comment: Tota l Protein results may be increased in patients receiving dextran as a blood volume scallop cutter Performed By: #### 1 14747, [id number] #### [facility] [address] [place] [address] Soil Conservation Aide: Azam Rice MD Sodium [Moles/Vol] 138 mmol/L Normal 135-145 [facility] Comment on above: Performed By: #### 1 67316, [id number] #### [facility] [address] [place] [address] Soil Conservation Aide: Azam Rice MD Urea nitrogen [Mass/Vol] 12 mg/dL Normal 9-23 [facility] Comment on above: Result Comment: - Ve nipuncture should occur prior to N-Acetyl Cysteine (NAC) or Metamizole (Sulpyrine) administration due to the potential for falsely depressed results. - Blood samples from some patients with monoclonal gammopathies may produce falsely elevated results Performed By: #### 1 81306, [id number] #### [facility] [address] [place] [address] Soil Conservation Aide: Azam Rice MD Urea nitrogen/Creatinine [Mass ratio] 13.3 mg/mg Normal [facility] Comment on above: Performed By: #### 1 35015, [id number] #### [facility] [address] [place] [address] Soil Conservation Aide: Azam Rice MD Cervical AND or Vaginal cyto logy studyon 10-13-2023 Cytology Cervical or vaginal smear or scraping study Pathology report.total SEE COMMENT Gynecologic Cytology Case: [id number] Authorizing Provider: Esthela Branham MD Collected: 10/13/2023 1142 Ordering Location: [facility] Received: 10/13/2023 1142 First Screen: SAUL Alvarenga Rescreen: SAUL Banks Specimen: ThinPrep Liquid-Based Pap-Imaging System Screen, CERVIX, SCREENING Cytology study comment SEE COMMENT A. THINPREP PAP CERVIX, SCREENING - Specimen Adequacy Satisfactory for evaluation; endocervical/transfor mation zone component is present General Categorization Negative for intraepithelial lesion or malignancy. Descriptive Interpretation Negative for intraepithelial lesion or malignancy Specimen does not meet the requisition-stated criteria for HPV testing. See Pap test interpretation above. Laboratory comment SEE COMMENT Slide(s) initially screened by SAUL Alvarenga at [facility] [id number] REPLACED BY [facility] [phone] QC review performed by SAUL Banks at [id number] REPLACED BY [facility] [phone] By the signature on this report, the individual or group listed as making the Final Interpretation/Diagno sis certifies that they have reviewed this case. This specimen has been analyzed by the ThinPrep Imaging System ([employer] an automated imaging and review system, which assists the laboratory in evaluating cells on ThinPrep Pap tests. Following automated imaging, selected hightower from every slide were reviewed by a laundry manager and/or pathologist. Cervical cytology is a screening procedure primarily for squamous cancers and precursors and has associated false-negative and false-positives results as evidenced by published data. Your patient's test should be interpreted in this context, together with the patient's history and clinical findings. Regular sampling and follow-up of unexplained clinical signs and symptoms are recommended to minimize false negative results. LAB AP HPV HR Reflex if ASCUS only LAB AP HPV GENOTYPE QUESTION Yes Date last menstrual period 10/02/2014 [facility] HEP C ABon 10-13-2023 Hepatitis C Antibody Non-Reactive Normal So [facility] Comment on above: Performed By: #### 1 [id number] #### [facility] [address] [place], [place] [id number] Soil Conservation Aide: Azam Rice MD HGB A1Con 10-13-2023 HbA1c (Bld) [Mass fraction] 5.5 % Normal [facility] Comment on above: Result Comment: Refe rence Range: Diabetic Greater than or equal to 6.5 % Prediabetic 5.7?6.4 % Normal Less than 5.7 % Performed By: #### 1 [id number] #### [facility] [address] [place] [address] Soil Conservation Aide: Azam Rice MD LIPID PNLon 10-13-2023 Calculated LDL Cholesterol 64 mg/dL Normal 60-130 [facility] Comment on above: Result Comment: <100 mg/dl Optimal 100-129 mg/dl Near Optimal 130-159 mg/dl Borderline High 160-189 mg/dl High >=190 mg/dl Very High Performed By: #### 1 84751, [id number] #### [facility] [address] [place] [address] Soil Conservation Aide: Azam Rice MD Cholesterol [Mass/Vol] 150 mg/dL Normal 100-200 [facility] Comment on above: Result Comment: Tati puncture should occur prior to N-Acetyl Cysteine (NAC) or Metamizole (Sulpyrine) administration due to the potential for falsely depressed results. Performed By: #### 1 98494, [id number] #### [facility] [address] [place] [address] Soil Conservation Aide: Azam Rice MD Cholesterol in HDL [Mass/Vol] 59 mg/dL Normal 40-60 [facility] Comment on above: Result Comment: Dire ct HDL Venipuncture should occur prior to metamizole (sulpyrine) administration due to the potential for falsely depressed results Performed By: #### 1 29861, [id number] #### [facility] [address] [place] [address] Soil Conservation Aide: Azam Rice MD Total Chol/HDL Chol Ratio 2.5 Normal [facility] Comment on above: Performed By: #### 1 16414, [id number] #### [facility] [address] [place] [address] Soil Conservation Aide: Azam Rice MD Triglyceride [Mass/Vol] 133 mg/dL Normal 30-150 [facility] Comment on above: Result Comment: - Ve nipuncture should occur prior to N-Acetyl Cysteine (NAC) or Metamizole (Sulpyrine) administration due to the potential for falsely depressed results - Use of this assay is not recommended for patients being treated with etamsylate because it causes falsely decreased results Performed By: #### 1 92296, [id number] #### [facility] [address] [place] [address] Soil Conservation Aide: Azam Rice MD Ophthalmic Eye [facility] 2022 Ophthalmic Eye Exam DOCUMENT REVIEWED BY : Maribel Pringle MD DOCUMENT SIGNED ELECTRONICALLY BY Maribel Pringle MD ON 02/09/2023 11:28:54 AM [place] [address] [place] [id number] THIS DOCUMENT WAS CREATED ON: 02/09/2023 11:28:33 AM BY: MD Rosario Mohamud performed Refraction Rosario Wen performed [id number] Exam Date: January PATIENT NAME: YEE LEVIN DATE: 1960 AGE: 62 GENDER: Female RACE: White PRIMARY CARE PHYSICIAN: Esthela Branham History Chief Complaint/Reason For Visit: Est pt. Annual exam. Hx DSAEK OU. Pt wears readers. Pt states va is not as clear. Pt using Restasis OU BID and Pred Acetate OU QAM, ATs OU prn. No pain, irritation, redness. HISTORY OF PRESENT ILLNESS: PROBLEM: Routine eye exam CONTEXT/ONSET: gradual LOCATION: both eyes TIMING: constant ASSOCIATED SS: none HPI was performed by Dr. Maribel Pringle MD and scribed by Chivo Pringle MD PAST MEDICAL HISTORY: PROCEDURES : 12/25/2012 DSAEK OD,02/14/2014 DSAEK OS ILLNESSES: History of Fuch endothelial dystrophy; History of depression; History of Anxiety; History of Pseudophakia of right eye; History of Pain in hand; History of Trigger thumb of right hand; History of Endocervical polyp; History of Left wrist pain; History of Exertional dyspnea; History of Chest discomfort; History of chronic fatigue; History of Polydipsia; History of Ankle injury; History of Accidental fall; History of Contusion of face; History of Body mass index (BMI) of 24.0 to 24.9 in adult SURGERIES: History of Oral Surgery Tooth Extraction; History of Cataract Surgery; History of Cornea Transplant; History of Cataract Surgery; History of Cornea Transplant; History of Cornea Transplant Endothelial; History of Colonoscopy; SOCIAL HISTORY: ALCOHOL: Occasional alcohol use; SMOKING: Never smoker; OCCUPATION: Occupation; STREET DRUGS: No drug use; NOTE: Exercise: Walking; ; FAMILY HISTORY: MOTHER: Family history of ASHD (arteriosclerotic heart disease) Other:Family history of cardiac disorder Other:Family history of kidney disease CURRENT MEDICATIONS: amLODIPine Besy-Benazepril HCl - 5-10 MG Oral Capsule - #90 Capsule, TAKE ONE CAPSULE BY MOUTH EVERY DAY, 3 refills, Evaluate: 07-Oct-2023 Artificial Tears 0.1-0.3 % Ophthalmic Solution - Milliliter, Solution, INSTILL 1 DROP TO BOTH EYES 2 X DAY[Reported] , Evaluate Atorvastatin Calcium 20 MG Oral Tablet - #1 90 Tablet Bottle, Tablet, TAKE 1 TABLET DAILY., 3 refills, Evaluate: 07-Oct-2023 Benadryl Allergy 25 MG Oral Tablet - Tablet, [Reported] , Evaluate Citracal Plus Oral Tablet - Tablet, [Reported] , Evaluate cycloSPORINE 0.05 % Ophthalmic Emulsion - #3 60 Unit Plas Cont, Emulsion, INSTILL 1 DROP IN BOTH EYES EVERY 12 HOURS DAILY., 3 refills, Evaluate: 03-Feb-2023 Desonide 0.05 % External Cream - #60 Cream, [Reported] Doxycycline Hyclate 100 MG Oral Capsule - #60 Capsule, [Reported] Fish Oil Concentrate 1000 MG Oral Capsule - Capsule, [Reported] , Evaluate Magnesium 250 MG Oral Tablet - Tablet, [Reported] , Evaluate Multivitamins CAPS (No longer available) - Capsule, [Reported] , Evaluate Pimecrolimus 1 % External Cream - #100 Cream, [Reported] prednisoLONE Acetate 1 % Ophthalmic Suspension - #3 10 ML Bottle, Suspension, Instill one drop in both eyes daily, 3 refills, Evaluate Saline Nasal [place] 0.65 % Nasal Solution - 30 ML Bottle, Solution, [Reported] , Evaluate Triamcinolone Acetonide 0.1 % External Cream - #1 45 GM Tube, Cream, APPLY AND RUB IN A THIN FILM TO AFFECTED AREAS TWICE DAILY.(AM AND PM)., 1 refill, Evaluate Tylenol PM Extra Strength 500-25 MG Oral Tablet - Tablet, [Reported] , Evaluate Vitamin C 500 MG Oral Capsule - Capsule, [Reported] , Evaluate ALLERGIES: No Known Drug Allergies REVIEW OF SYSTEMS: All other Review Of Systems negative Exam ORIENTATION, MOOD AND AFFECT: Alert AND oriented x3 RIGHT EYE LEFT EYE UNCORRECTED VA 20/20-2 20/30+1 MANIFEST REFRACTION +0.50 -0.75 x 080 add +2.50 +0.25 -1.25 x 085 add +2.50 [place] FINAL VA 20/20-2 20/25 PACHYMETRY 598 from 08/29/2018 585 from 08/29/2018 PRESSURE METHOD: Applanation Applanation PRESSURES: 14 14 DATE-TIME: 02/09/2023 10:52:25 AM 02/09/2023 10:52:25 AM SALVAGE ENGINEER: [email or web address] ADJUSTED IOP VALUE: 11 12 EXTERNAL EYE EXAM: LID: Good Position Good Position PUPIL: PERRL/no APD PERRL/no APD ADNEXA: Normal Normal MUSCLE BALANCE: Ortho OCULAR MOTILITY: Full ANTERIOR SEGMENT EXAM: TEARFILM: TBUT 6 sec, good tear TBUT 6 sec, good tear meniscus meniscus CONJUNCTIVA: punctate epithelial erosions punctate epithelial erosions 0 0 temporal, nasal, with 0 0 nasal, temporal chalasis nasal CORNEA: DSAEK - clear and compact, no DSAEK - clear and compact, no keratic precipitates, no keratic precipitates, no endothelial rejection line endothelial rejection line ANTERIOR CHAMBER: Deep and quiet D (more content not included)... Normal Andre Phillipe DIGITAL MAMM SCREENING W/ TO Garcia 10-28-2022 DIGITAL MAMM SCREENING W/ NEHAL Patient Name: YEE LEVIN STUDY: DIGITAL SCREENING BILATERAL MAMMOGRAM WITH BREAST TOMOSYNTHESIS AND WITH CAD; 10/28/2022 12:05 pm INDICATION: Routine screening. COMPARISON: 10/27/2021 ACCESSION NUMBER(S): [id number] ORDERING CLINICIAN: ESTHELA BRANHAM FINDINGS: 2D and tomosynthesis images were reviewed at 1 mm slice thickness. Images were obtained in MLO and CC projections. The breast tissue is heterogeneously dense, which may obscure small masses. No suspicious masses or calcifications are identified. There are stable areas of asymmetry bilaterally. This study was interpreted with CAD. IMPRESSION: No mammographic evidence of malignancy. BI-RADS CATEGORY: Category: 1 - Negative. Recommendation: 1 Year Screening. Electronically signed by: MONSTER BLAKE MD Normal [facility] 50+ Yearson 10-12-2022 50+ Years Diagnoses/Problems Health Maintenance/Risks Encounter for preventive health examination (V70.0) (Z00.00) Assessed Benign essential hypertension (401.1) (I10) Hyperlipidemia (272.4) (E78.5) Overweight with body mass index (BMI) of 25 to 25.9 in adult (278.02,V85.21) (E66.3,Z68.25) Encounter for screening mammogram for breast cancer (V76.12) (Z12.31) Orders Benign essential hypertension Renew: amLODIPine Besy-Benazepril HCl - 5-10 MG Oral Capsule; TAKE ONE CAPSULE BY MOUTH EVERY DAY Rx By: Esthela Branham; Dispense: 90 Days ; #:90 Capsule; Refill: 3;For: Benign essential hypertension; DONOVAN = N; Verified Transmission to [employer] (Mail Order); Last Updated By: System, LVL7 Systems; 10/12/2022 11:31:23 AM Encounter for screening mammogram for breast cancer Mamm - Screening Mammogram w/ Tomosynthesis; Status:Active; Requested for:28Oct2022; Perform: Radiology Services Imaging;Ordered; For:Encounter for screening mammogram for breast cancer; Ordered By:Esthela Branham; Radiologist to Determine Optimal Study : Y What are the patient's signs and symptoms ? : Annual Screening Mammogram Health Maintenance Comprehensive Metabolic Panel; Status:Active; Requested for:12Oct2022; Perform:Lab Services - Lab To Draw (Blood Test); Due:10Jan2023;Ordered ; For:Health Maintenance; Ordered By:Esthela Branham; Hemoglobin A1C; Status:Active; Requested for:12Oct2022; Perform:Lab Services - Lab To Draw (Blood Test); Due:[id number];Ordered ; For:Health Maintenance; Ordered By:Esthela Branham; Lipid Panel; Status:Active; Requested for:12Oct2022; Perform:Lab Services - Lab To Draw (Blood Test); Due:10Jan2023;Ordered ; For:Health Maintenance; Ordered By:Esthela Branham; Hyperlipidemia Renew: Atorvastatin Calcium 20 MG Oral Tablet; TAKE 1 TABLET DAILY Rx By: Esthela Branham; Dispense: 90 Days ; #:1 X 90 Tablet Bottle; Refill: 3;For: Hyperlipidemia; DONOVAN = N; Verified Transmission to [employer] (Mail Order); Last Updated By: [employer]; 10/12/2022 11:31:22 AM Patient Discussion/Summary annual wellness exam followup hypertension and hyperlipidemia continue current medication and management above normal BMI nutrition and physical activity reviewed continue healthy diet and exercise schedule mammogram schedule colon cancer screening continue annual exams Chief Complaint wellness exam Adult Risk Screening Initial Fall Risk Screening: YEE has not fallen in the last 6 months. Tobacco Screening: YEE does not use tobacco. Depression/Suicide Screening: During the past 2 weeks, the patient has not felt down, depressed or hopeless. During the past 2 weeks, the patient has not felt little interest or pleasure in doing things. She does not have a risk of suicide. She has not had thoughts of harming others. History of Present Illness there are no concerns today. The patient's health since the last visit is described as good. She has regular dental visits. She denies vision problems. She denies hearing loss. Immunizations status: up to date. Lifestyle: She consumes a diverse and healthy diet. She does not have any weight concerns. She exercises regularly. She does not use tobacco. She denies alcohol use. Reproductive health: she reports normal menses. Cervical cancer screening: cancer screening reviewed and current. Breast cancer screening: cancer screening reviewed and current. 62 year old here for annual wellness exam and followup chronic conditions No hospital ER visits or surgery No new family history patient is a non-smoker Exercises regularly She has hypertension hyperlipidemia tolerating her medicines well with no problems or side effects is here for follow-up for that as well No angina palpitations or syncope no lateralizing weakness patient is postmenopausal no new concerns Review of Systems Constitutional: no chills, no fever and no night sweats. Eyes: no blurred vision and no eyesight problems. ENT: no hearing loss, no nasal congestion, no nasal discharge, no hoarseness and no sore throat. Cardiovascular: no chest pain, no intermittent leg claudication, no lower extremity edema, no palpitations and no syncope. Respiratory: no cough, no shortness of breath during exertion, no shortness of breath at rest and no wheezing. Gastrointestinal: no abdominal pain, no blood in stools, no constipation, no diarrhea, no melena, no nausea, no rectal pain and no vomiting. Genitourinary: no dysuria, no change in urinary frequency, no urinary hesitancy, no feelings of urinary urgency and no vaginal discharge. Musculoskeletal: no arthralgias, no back pain and no myalgias. Integumentary: no new skin lesions and no rashes. Neurological: no difficulty walking, no headache, no limb weakness, no numbness and no tingling. Psychiatric: no anxiety, no depression, no anhedonia and no substance use disorders. Endocrine: no recent weight gain and no recent weight loss. Hematologic/Lymphatic : no tend (more content not included)... Normal Andre Phillipe Tobacco Screening.on 022 Fall risk assessment a) No falls within the last year [facility] Work Phone: Tobacco use status [facility] b) No [facility] Work Phone: Imm/Pathon 10-07-2019 Cytology report Cyto stain.thin prep Doc (Cvx/Vag) [facility] Work Phone: Otheron 10-07-2019 Date of Procedure: 10/07/2019 Pathologist: [facility], CytologyDate Reported: 10/09/2019Date Received: 10/07/2019Submitting Physician: ESTHELA BRANHAM MD FINAL CYTOLOGICAL INTERPRETATIONA. THINPREP PAP CERVICAL Reflex - [facility] only: Specimen Adequacy: SATISFACTORY FOR EVALUATION. Quality Indicator: Endocervical/transfor mation zone component cannot beassessed because of severe atrophy. General Categorization: NEGATIVE FOR INTRAEPITHELIAL LESION OR MALIGNANCY. Ancillary Testing: Specimen does not meet the requisition-stated criteria for HPV testing.See Pap test interpretation above. This specimen has been analyzed by the [employer] Imaging System ([employer]an automated imaging and review system, which assists the laboratory inevaluating cells on ThinPrep Pap tests. Following automated imaging, selectedfields from every slide were reviewed by a laundry manager and/or pathologist.Allyssa dawn Signed Out By [facility], Cytology//TFP By the signature on this report, the individual or group listed as making theFinal Interpretation/Diagno sis certifies that they have reviewed this case.Educational Note:Cervical cytology is a screening procedure primarily for squamous cancers andprecursors and has associated false-negative and false-positive results asevidenced by published data. Your patient's test should be interpreted in thiscontext, together with patient's history and clinical findings. Regularsampling and follow-up of unexplained clinical signs and symptoms arerecommended to minimize false negative results. Clinical HistoryDate of Last Menstrual Period: 2014Other Clinical Conditions:HPV Reflex for ASC-US only - Exclude HPV Genotype Source of SpecimenA: THINPREP PAP CERVICAL Reflex - [facility] Work Phone: Vital Signs Date Time Vital Sign Value Performing Clinician Facility 10-14-2024 09:07-0500 Body height 165.1 cm [facility] 10-14-2024 09:07-0500 Body mass index (BMI) [Ratio] 26.5 kg/m2 [facility] 10-14-2024 09:07-0500 Body temperature 96.5 [degF] [facility] 10-14-2024 09:07-0500 Body weight 72.29 kg [facility] 10-14-2024 09:07-0500 Diastolic blood pressure 80 mm[Hg] [facility] 10-14-2024 09:07-0500 Heart rate 75 /min [facility] 10-14-2024 09:07-0500 SaO2% (BldA) [Mass fraction] 99 % [facility] 10-14-2024 09:07-0500 Systolic blood pressure 134 mm[Hg] [facility] 10-13-2023 09:16-0500 Body height 165.1 cm Esthela Branham MD Work Phone: [facility] 10-13-2023 09:16-0500 Body mass index (BMI) [Ratio] 26.46 kg/m2 Esthela Branham MD Work Phone: [facility] 10-13-2023 09:16-0500 Body weight 72.12 kg Esthela Branham MD Work Phone: [facility] 10-13-2023 09:16-0500 Diastolic blood pressure 70 mm[Hg] Esthela Branham MD Work Phone: [facility] 10-13-2023 09:16-0500 Heart rate 78 /min Esthela Branham MD Work Phone: [facility] 10-13-2023 09:16-0500 SaO2% (BldA) [Mass fraction] 97 % Esthela Branham MD Work Phone: [facility] 10-13-2023 09:16-0500 Systolic blood pressure 138 mm[Hg] Esthela Branham MD Work Phone: [facility] 10-12-2022 11:23-0500 Diastolic blood pressure 70 mm[Hg] Esthela Branham Work Phone: [facility] Work Phone: 10-12-2022 11:23-0500 Systolic blood pressure 128 mm[Hg] Esthela Branham Work Phone: [facility] Work Phone: 10-12-2022 10:37-0500 Body height 170.18 cm Esthela Branham Work Phone: [facility] Work Phone: 10-12-2022 10:37-0500 Body mass index (BMI) [Ratio] 25.06 kg/m2 Esthela Branham Work Phone: [facility] Work Phone: 10-12-2022 10:37-0500 Body surface area Derived from formula 1.84 m2 Esthela Branham Work Phone: [facility] Work Phone: 10-12-2022 10:37-0500 Body temperature 97.7 [degF] Esthela Branham Work Phone: [facility] Work Phone: 10-12-2022 10:37-0500 Body weight 72.58 kg Esthela Branham Work Phone: [facility] Work Phone: 10-12-2022 10:37-0500 Diastolic blood pressure 75 mm[Hg] Esthela Branham Work Phone: [facility] Work Phone: 10-12-2022 10:37-0500 Heart rate 80 /min Esthela Branham Work Phone: [facility] Work Phone: 10-12-2022 10:37-0500 SaO2% (BldA) [Mass fraction] 98 % Esthela Branham Work Phone: [facility] Work Phone: 10-12-2022 10:37-0500 Systolic blood pressure 142 mm[Hg] Esthela Branham Work Phone: [facility] Work Phone: 10-11-2021 10:15-0500 Body height 170.18 cm Esthela Branham Work Phone: [facility] Work Phone: 10-11-2021 10:15-0500 Body mass index (BMI) [Ratio] 24.59 kg/m2 Esthela Branham Work Phone: [facility] Work Phone: 10-11-2021 10:15-0500 Body surface area Derived from formula 1.82 m2 Esthela Branham Work Phone: [facility] Work Phone: 10-11-2021 10:15-0500 Body temperature 97.1 [degF] Esthela Branham Work Phone: [facility] Work Phone: 10-11-2021 10:15-0500 Body weight 71.22 kg Esthela Branham Work Phone: [facility] Work Phone: 10-11-2021 10:15-0500 Diastolic blood pressure 68 mm[Hg] Esthela Branham Work Phone: [facility] Work Phone: 10-11-2021 10:15-0500 Heart rate 67 /min Esthela Branham Work Phone: [facility] Work Phone: 10-11-2021 10:15-0500 SaO2% (BldA) [Mass fraction] 99 % Esthela Branham Work Phone: [facility] Work Phone: 10-11-2021 10:15-0500 Systolic blood pressure 120 mm[Hg] Esthela Branham Work Phone: [facility] Work Phone: 11-27-2020 12:47-0500 BMI (Body Mass Index) 23.53 kg/m2 Esthela Branham [facility] Work Phone: 11-27-2020 12:47-0500 Body Temperature 97.2 [degF] Esthela Branham [facility] Work Phone: 11-27-2020 12:47-0500 Body weight 68.[address] [facility] Work Phone: 11-27-2020 12:47-0500 BP Diastolic 66 mm[Hg] Esthelalorie Branham [facility] Work Phone: 11-27-2020 12:47-0500 BP Systolic 130 mm[Hg] Esthela Branham [facility] Work Phone: 11-27-2020 12:47-0500 BSA (Body Surface Area) 1.79 m2 Esthela Branham [facility]Family [facility] Work Phone: 11-27-2020 12:47-0500 Pulse (Heart Rate) 81 /min [facility]helalorie Branham [facility] Work Phone: 10-07-2019 18:31-0500 BMI (Body Mass Index) 24.71 kg/m2 Esthela Branham [facility] Work Phone: 10-07-2019 18:31-0500 Body Temperature 97.8 [degF] Esthela Branham MP[facility]Family Medic [facility] Work Phone: 10-07-2019 18:31-0500 Body weight 69.97 kg Esthela Branham [facility] Work Phone: 10-07-2019 18:31-0500 BP Diastolic 74 mm[Hg] Esthela Branham [facility] Work Phone: 10-07-2019 18:31-0500 BP Systolic 144 mm[Hg] Esthela Branham [facility] Work Phone: 10-07-2019 18:31-0500 BSA (Body Surface Area) 1.8 m2 Esthela Branham [facility] Work Phone: 10-07-2019 18:31-0500 Height 168.28 cm Esthela Branham [facility] Work Phone: 10-07-2019 18:31-0500 LMP 2015 1 Esthelalorie Branham [facility] Work Phone: 10-07-2019 18:31-0500 Pulse (Heart Rate) 79 /min Esthela Branham [facility]Family [facility] Work Phone: 06-21-2019 13:04-0400 BMI (Body Mass Index) 25.54 kg/m2 Esthela Branham [facility] Work Phone: 06-21-2019 13:04-0400 Body Temperature 97.2 [degF] Esthela Branham [facility]Family [facility] Work Phone: 06-21-2019 13:04-0400 Body weight 69.63 kg Esthela Branham [facility] Work Phone: 06-21-2019 13:04-0400 BP Diastolic 70 mm[Hg] Esthela Branham [facility] Work Phone: 06-21-2019 13:04-0400 BP Systolic 130 mm[Hg] Esthela Branham [facility] Work Phone: 06-21-2019 13:04-0400 BSA (Body Surface Area) 1.77 m2 Esthela Branham MP-Family [facility] Work Phone: 06-21-2019 13:04-0400 Pulse (Heart Rate) 72 /min Esthela Branham [facility] Work Phone: 03-13-2019 17:37-0400 BMI (Body Mass Index) 25.36 kg/m2 Esthelalorei Branham [facility]Family [facility] Work Phone: 03-13-2019 17:37-0400 Body Temperature 97.9 [degF] Esthela Branham [facility]Family [facility] Work Phone: 03-13-2019 17:37-0400 Body weight 69.12 kg Esthelalorie Branham [facility] Work Phone: 03-13-2019 17:37-0400 BP Diastolic 76 mm[Hg] Esthela Branham [facility] Work Phone: 03-13-2019 17:37-0400 BP Systolic 140 mm[Hg] Esthela Branham [facility] Work Phone: 03-13-2019 17:37-0400 BSA (Body Surface Area) 1.76 m2 Esthela Branham MP-Family [facility] Work Phone: 03-13-2019 17:37-0400 Pulse (Heart Rate) 80 /min Esthela Branham [facility]Family [facility] Work Phone: 02-01-2019 17:47-0400 BMI (Body Mass Index) 25.46 kg/m2 Esthela Branham [facility] Work Phone: 02-01-2019 17:47-0400 Body Temperature 97.9 [degF] Esthelalorie Branham MP[facility]Family [facility] Work Phone: 02-01-2019 17:47-0400 Body weight 69.4 kg Esthela Branham MG-Ophthalmology -[place] [facility] Work Phone: 02-01-2019 17:47-0400 BP Diastolic 80 mm[Hg] Esthela Branham [facility] Work Phone: 02-01-2019 17:47-0400 BP Systolic 140 mm[Hg] Esthela Branham [facility] Work Phone: 02-01-2019 17:47-0400 BSA (Body Surface Area) 1.77 m2 [facility]: 02-01-2019 17:47-0400 Pulse (Heart Rate) 73 /min Esthelalorie Branham [facility]Family [facility] Work Phone: 02-01-2019 17:47-0400 Weight 69.4 kg Esthelalorie Branham [facility] Work Phone: 01-07-2019 10:30-0400 BMI (Body Mass Index) 25.17 kg/m2 Esthela Branham MP[facility]Family [facility] Work Phone: 01-07-2019 10:30-0400 Body Temperature 97 [degF] Esthela Branham [facility]Family [facility] Work Phone: 01-07-2019 10:30-0400 BP Diastolic 78 mm[Hg] Esthela Branham [facility] Work Phone: 01-07-2019 10:30-0400 BP Systolic 126 mm[Hg] Esthela Branham [facility] Work Phone: 01-07-2019 10:30-0400 BSA (Body Surface Area) 1.76 m2 Esthela Branham [facility] Work Phone: 01-07-2019 10:30-0400 Pulse (Heart Rate) 101 /min [facility]hel[facility] Branham [facility] Work Phone: 01-07-2019 10:30-0400 Weight 68.61 kg Esthela Branham [facility] Work Phone: Encounters Encounter Date Encounter Type Care Provider Facility Start: 10-14-2024 End: 10-14-2024 ambulatory [facility] Work Phone: Start: 10-14-2024 End: 10-14-2024 Patient encounter procedure [facility] Work Phone: Start: 02-13-2024 End: 02-13-2024 ambulatory MARIBEL Talbot [facility] Start: 11-09-2023 End: 11-10-2023 ambulatory ESTHELA BRANHAM [facility] Start: 10-13-2023 End: 10-14-2023 ambulatory ESTHELA BRANHAM MD Facility:[id number] Start: 10-13-2023 Encounter for genera l adult medical examination without abnormal findings ESTHELA Talbot [facility] Start: 10-13-2023 End: 10-13-[address] [facility] Start: 10-13-2023 End: 10-13-2023 Encounter for general adult medical examination without abnormal findings ESTHELA Antione [facility] Start: 10-13-2023 End: 10-13-2023 Office outpatient visit 15 minutes Esthela Branham MD Work Phone: [facility] Comment on above: Medicare annual [facility], initial (Primary Dx); Keratoconjunctivitis sicca (CMS/HCC); Mixed hyperlipidemia; Benign essential hypertension; Postmenopausal state; Encounter for screening mammogram for breast cancer; Need for hepatitis C screening test; Cervical cancer screening; Prediabetes Start: 10-13-2023 End: 10-13-2023 Patient encounter procedure Esthela Branham MD Work Phone: [facility] Work Phone: Start: 02-09-2023 ambulatory MD ESTHELA BRANHAM Facility:[id number] Start: 02-09-2023 Patient encounter procedure Esthela Branham Work Phone: [facility] Work Phone: Start: 10-28-[address] Esthela Lee ity:[id number] Start: 10-12-2022 Current tobacco non- user cad cap copd pv dm Esthela Branham Work Phone: [facility] Work Phone: Start: 10-12-2022 ambulatory MD ESTHELA BRANHAM Facility:[id number] Start: 02-08-2022 Patient encounter procedure Esthela Branham Work Phone: [facility]xc[facility]ss[facility] [employer] [facility] [employer] Work Phone: Start: 01-31-2022 Chart Update Esthela davis Work Phone: [facility] Work Phone: Start: 10-11-2021 Current tobacco non- user cad cap copd pv dm Esthela Branham Work Phone: [facility] Work Phone: Start: 06-10-2021 Patient encounter procedure Esthela Branham Work Phone: TO-Udndgvpxdjvsq-Wxisd [facility] Work Phone: Start: 03-22-2021 AUDIT Esthela Acuña s Work Phone: CV-Zrjdbxulwyhts-Fzbaf [facility]brook Work Phone: Start: 02-26-2021 Patient encounter procedure Esthela Branham Work Phone: CB-Tybnyihujctby-Rdahw ll 3200 Work Phone: Start: 11-27-2020 Patient encounter procedure Esthela Branham [facility] Work Phone: Start: 10-09-2020 Patient encounter procedure Esthela Branham [facility] Work Phone: Start: 02-21-2020 Patient encounter procedure Esthela Branham [facility] Work Phone: Start: 10-07-2019 Patient encounter procedure Esthela Branham [facility] Work Phone: Start: 06-21-2019 Patient encounter procedure [facility]a Bran[facility] Work Phone: Start: 04-23-2019 Patient encounter procedure Esthela Branham [facility] Work Phone: Start: 03-13-2019 Patient encounter procedure Esthela Branham [facility] Work Phone: Start: 02-28-2019 Patient encounter procedure Esthela Branham [facility]Aerzjjrqzgokn-Dumje [facility] Work Phone: Start: 02-01-2019 Patient encounter procedure Esthela Branham [facility] Work Phone: Start: 01-07-2019 Patient encounter procedure Esthela Branham [facility] Work Phone: Start: 12-03-2018 Patient encounter procedure Esthela Branham [facility] Work Phone: Start: 08-29-2018 Patient encounter procedure Esthela Branham [facility] Work Phone: Start: 08-15-2018 Patient encounter procedure Esthela Branham [facility] Work Phone: Start: 06-29-2018 Patient encounter procedure Esthela Branham [facility] Work Phone: Start: 05-16-2018 Patient encounter procedure Esthela Branham [facility] Work Phone: Start: 09-06-2017 End: 09-06-2017 Ambulatory UNKNOWN PROVIDER Facility:[facility] Start: 08-23-2017 Patient encounter procedure Esthela Branham [facility] Work Phone: Start: 02-20-2017 Patient encounter procedure Esthela Branham [facility] Work Phone: Procedures Date Procedure Procedure Detail Performing Clinician Start: 11-09-2023 BI MAMMO BILATERAL SCREENING TOMOSYNTHESIS ESTHELA BRANHAM Start: 11-09-2023 DEXA BONE DENSITY ESTHELA BRANHAM Start: 10-13-2023 GYNECOLOGIC CYTOLOGY CONSULTATION ESTHELA BRANHAM Start: 10-13-2023 Cytp c/v auto thin lyr prepj scr mnl rescr phys Esthela Branham MD Work Phone: Start: 10-13-2023 Microscopic observation [Identifier] in Cervix by Cyto stain Esthela Branham MD Work Phone: Start: 10-28-2022 Mammography Esthela Branham MD Work Phone: Start: 07-28-2020 End: 07-28-2020 Colonoscopy Esthela Branham Start: 07-28-2020 Colonoscopy Esthela Branham Work Phone: Start: 07-29-2019 Lipid 1996 panel - Serum or Plasma Esthela Branham MD Work Phone: Start: 09-06-2017 RN NURSE CLINIC VISIT - BP UNKNOWN PROVIDER Cataract surgery Esthela taveras 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 Esthela K Branham Work Phone: History of Cornea Transplant Esthela Branham History of Cornea Transplant Endothelial Esthela Branham History of Oral Surg jase Tooth Extraction Esthela Branham Plan of Treatment Date Care Activity Detail Author Start: 07-28-2030 Screening for malignant neoplasm of colon [facility] Start: 04-23-2029 DTaP/Tdap/Td Vaccine s (3 - Td or Tdap) DTaP/Tdap/Td Vaccines (3 - Td or Tdap) [facility] Start: 10-13-2026 Screening for malignant neoplasm of cervix [facility] Start: 10-14-[address] [facility] Work Phone: Start: 07-29-2024 Lipid panel Lipid Panel [facility] Start: 02-13-2024 EPV, Provider: Maribel Pringle, Status: Pen, Time: 2:00 PM EPV, Provider: Maribel Pringle, Status: Pen, Time: 2:00 PM FC-Lvfoxifiojvfy-Uxf [facility] Work Phone: Start: 02-13-2024 End: 02-13-2024 Patient encounter procedure 02/13/2024 2:00 PM EDT Office Visit [facility] [id number] [facility] [address] [address] [place] [address] [address] Department [place] [address] [facility] Start: 01-12-2024 Zoster Vaccines (2 o f 2) Zoster Vaccines (2 of 2) [facility] Comment on above: Postponed from 03/04 (Other Patient Reasons) Start: 11-09-2023 End: 11-09-2023 Patient encounter procedure [facility] Start: 10-28-2023 Screening for malignant neoplasm of breast Mammogram [facility] Start: 10-13-2023 End: 10-13-2024 Comprehensive metabolic 2000 panel - Serum or Plasma Comprehensive Metabolic Panel Lab Routine Benign essential hypertension Expected: 10/13/2023 (Approximate), Expires: 10/13/2024 [facility] Work Phone: Comment on above: Expected: 10/13/2023 (Approximate), Expires: 10/13/2024 Start: 10-13-2023 End: 12-11-2024 DBT Breast - bilateral BI mammo bilateral screening tomosynthesis Imaging Routine Encounter for screening mammogram for breast cancer Expected: 10/13/2023, Expires: 12/11/2024 [facility] Work Phone: Comment on above: Expected: 10/13/2023 , Expires: 12/11/2024 Start: 10-13-2023 End: 10-13-2024 DXA Skeletal system Views for bone density XR DEXA bone density Imaging Routine Postmenopausal state Expected: 10/13/2023, Expires: 10/13/2024 [facility] Service Area Work Phone: Comment on above: Expected: 10/13/2023 , Expires: 10/13/2024 Start: 10-13-2023 End: 10-13-2024 Hemoglobin A1c/Hemoglobin.total in Blood Hemoglobin A1C Lab Routine Prediabetes Expected: 10/13/2023 (Approximate), Expires: 10/13/2024 [facility] Work Phone: Comment on above: Expected: 10/13/2023 (Approximate), Expires: 10/13/2024 Start: 10-13-2023 End: 10-13-2024 Hepatitis C virus Ab [Presence] in Serum Hepatitis C antibody Lab Routine Need for hepatitis C screening test Expected: 10/13/2023 (Approximate), Expires: 10/13/2024 [facility] Work Phone: Comment on above: Expected: 10/13/2023 (Approximate), Expires: 10/13/2024 Start: 10-13-2023 End: 10-13-2024 Lipid 1996 panel - Serum or Plasma Lipid Panel Lab Routine Mixed hyperlipidemia Expected: 10/13/2023 (Approximate), Expires: 10/13/2024 [facility] Work Phone: Comment on above: Expected: 10/13/2023 (Approximate), Expires: 10/13/2024 Start: 02-09-2023 EPV, Provider: Maribel Pringle, Status: Pen, Time: 10:00 AM EPV, Provider: Maribel Pringle, Status: Pen, Time: 10:00 AM EI-Dhqwofxrixiwk[facility] Work Phone: Start: 02-08-2022 EPV, Provider: Maribel Pringle, Status: Pen, Time: 10:00 AM EPV, Provider: Maribel Pringle, Status: Pen, Time: 10:00 AM HJ-Qltjkfgqwujtq-Iqs [place] Work Phone: Start: 12-03-2021 Diabetes mellitus screening Diabetes Screening [facility] Start: 05-31-2021 EPV, Provider: Maribel Pringle, Status: Pen, Time: 3:30 PM EPV, Provider: Maribel Pringle, Status: Pen, Time: 3:30 PM PK-Rzwycqytlrwfu[facility] [address] Work Phone: Start: 12-04-2019 Hemoglobin A1c measurement Diabetes: Hemoglobin A1C [facility] Start: 1979 Screening for malignant neoplasm of cervix HPV/Cotest [facility] Start: 1976 Hepatitis C screening Hepatitis C Sc [facility] Start: 1960 Annual wellness visit Medicare Initial Physical (IPPE) [facility] Start: 1960 Screening for malignant neoplasm of colon [facility] Start: 1960 Screening for osteoporosis Bone Density Scan [facility] Comprehensive metabolic 2000 panel - Serum or Plasma [facility] MG Breast - bilatera l Screening [facility] Patient referral [facility] Work Phone: [facility] Work Phone: [facility] NEGATED: Highlighted row has been ruled out! Planned Goals not documented [facility] Work Phone: Immunizations Immunization Date Immunization Notes Care Provider Naty smith 07-25-2023 Pneumococcal conjuga te vaccine, 20-valent (PREVNAR 20) Esthela Branham MD Work Phone: [facility] Work Phone: 06-24-2023 Moderna COVID-19 vaccine, Fall 2022, 12 yeasrs and older (50mcg/0.5mL) Esthela Branham MD Work Phone: [facility] Work Phone: 06-23-2023 Influenza, injectabl e, Madin Harmony Canine Kidney, preservative free, quadrivalent Esthela Branham MD Work Phone: [facility] Work Phone: 07-05-2022 influenza, injectabl e, quadrivalent, preservative free Esthela Branham Work Phone: [facility] Work Phone: 07-05-2022 Moderna COVID-19 Biv al Booster 50 MCG/0.5ML Intramuscular Suspension [employer] Work Phone: [facility] Work Phone: 01-04-2022 Moderna COVID-19 Vaccine 100 MCG/0.5ML Intramuscular Suspension [employer] Work Phone: [facility] Work Phone: 08-27-2021 Moderna COVID-19 Vaccine 100 MCG/0.5ML Intramuscular Suspension [employer] Work Phone: [facility] Work Phone: 06-29-2021 influenza virus vaccine, unspecified formulation [employer] Work Phone: [facility] Work Phone: Comment on above: Series: 01-08-2021 Moderna COVID-19 Vaccine 100 MCG/0.5ML Intramuscular Suspension [employer] Work Phone: [facility] Work Phone: 12-11-2020 Moderna COVID-19 Vaccine 100 MCG/0.5ML Intramuscular Suspension Esthela Antione Branham Work Phone: [facility] Work Phone: 07-06-2020 influenza virus vaccine, unspecified formulation Esthelalorie Branham Work Phone: [facility]Emetmdeorlk[facility] [address] Work Phone: Comment on above: Series: 07-06-2020 influenza, seasonal, injectable Esthela Carrol [facility] Work Phone: 07-10-2019 influenza virus vaccine, unspecified formulation Esthelalorie Branham Work Phone: WU[facility]Yikiqwqsnodhu[facility] [address] Work Phone: Comment on above: Series: 07-10-2019 influenza, injectabl e, quadrivalent, preservative free Esthela Branham MD Work Phone: [facility] Work Phone: 07-10-2019 influenza, seasonal, injectable Esthela Carrol [facility] Work Phone: 04-23-2019 tetanus toxoid, redu lilly diphtheria toxoid, and acellular pertussis vaccine, adsorbed; Translations: [Tdap (Boostrix)] Esthela Branham [facility] Work Phone: Comment on above: Series: 01-07-2019 zoster vaccine recombinant; Translations: [Shingrix 50 MCG Intramuscular Suspension Reconstituted] Esthela Branham [facility] Work Phone: Comment on above: Series: 01-07-2019 zoster vaccine, unspecified formulation Esthela Branham MD Work Phone: [facility] Work Phone: 06-29-2018 influenza, injectabl e, quadrivalent, preservative free Esthela Branham MD Work Phone: [facility] Work Phone: 06-29-2018 influenza, seasonal, injectable Esthela Branham [facility] Work Phone: Comment on above: Series: 04-05-2017 hepatitis A and hepatitis B vaccine Esthela Branham Work Phone: [facility] Work Phone: Comment on above: Series: 11-07-2016 hepatitis A and hepatitis B vaccine Esthela Branham Work Phone: [facility] Work Phone: Comment on above: Series: 10-04-2016 hepatitis A and hepatitis B vaccine Esthela Branham Work Phone: [facility] Work Phone: Comment on above: Series: 09-09-2010 tetanus toxoid, redu lilly diphtheria toxoid, and acellular pertussis vaccine, adsorbed Esthela Branham Work Phone: OE[facility]Mpnaovshdcmhr[facility] [address] Work Phone: Comment on above: Series: 09-09-2010 tetanus toxoid, redu lilly diphtheria toxoid, and acellular pertussis vaccine, adsorbed Esthela Branham [facility] Work Phone: 09-21-2009 novel [id number], preservative-free, injectable Esthela Branham Work Phone: [facility] Work Phone: Payers Date Payer Category Payer Medicare 2023 Medicare [id number] 1993 Unknown 1993 [facility] [id number] 1960 Unknown [id number] 1958 Unknown [id number] [id number] 1958 Unknown [id number] 1958 Unknown [id number] 1958 Unknown [id number] 1958 Unknown [id number] 1958 Unknown [id number] [id number] 1960 Unknown [id number] Unknown [id number] Social History Date Type Detail Facility Start: 10-13-2023 Never smoker Never smoker [facility] [address] Work Phone: Start: 10-13-2023 Tobacco smoking status NHIS Never smoked tobacco [facility] Work Phone: Start: 10-13-2023 Tobacco use and exposure Smokeless tobacco non-user [facility] Work Phone: Start: 11-01-2023 Alcohol intake Lifetime non-d kwabena (finding) [facility] Work Phone: Start: 10-13-2023 Tobacco use panel [facility] Work Phone: Start: 1960 Sex Assigned At Not on file [facility] Work Phone: Start: 10-03-2023 End: 10-13-2023 Exposure to SARS-CoV-2 (event) Not sure [facility] Tobacco smoking status TNIS Unknown if ever smoked [facility] Work Phone: Start: 10-14-2024 Sex Female (finding) [facility] Start: 1960 Sex Assigned At Female [facility] NEGATED: Highlighted row - Never smoker [facility] Work Phone: Functional Status Date Assessment Result Facility NEGATED: Highlighted row Functional performance Functional status health issues are not documented Disease [facility] Work Phone: Mental Status Date Assessment Result Facility NEGATED: Highlighted row Cognitive function [Interpretation] Cognitive status health issues are not documented Disease [facility] Work Phone: Clinical Notes 10-13-2023 to 11-01-2023 Assessment & Plan Note - Esthela Branham MD - 11/01/2023 12:16 AM ESTAssessment & Plan Note - Esthela Branham MD - 11/01/2023 12:16 AM ESTEsthela Branham MD - 10/13/2023 9:00 AM EST Note Date & Type Note Facility 11-01-2023 Evaluation + Plan note Associated Problem(s): Keratoconjunctivitis sicca (CMS/HCC) Stable based on symptoms and exam Continue to follow-up with rheumatology [facility] Work Phone: 11-01-2023 Evaluation + Plan note Associated Problem(s): Medicare annual wellness visit, initial Pap today Continue annual exams [facility] Work Phone: 11-01-2023 Evaluation + Plan note Associated Problem(s): Hyperlipidemia Stable and controlled on atorvastatin Continue low-cholesterol diet No issues at this time Follow-up yearly [facility] Work Phone: 11-01-2023 Miscellaneous Notes Associated Problem(s): Keratoconjunctivitis sicca (CMS/HCC) Stable based on symptoms and exam Continue to follow-up with rheumatology Associated Problem(s): Medicare annual wellness visit, initial Pap today Continue annual exams Associated Problem(s): Hyperlipidemia Stable and controlled on atorvastatin Continue low-cholesterol diet No issues at this time Follow-up yearly Associated Problem(s): Benign essential hypertension Stable and controlled on amlodipine and BenzePril no issues at this time Continue to follow-up yearlyril documented in this encounter [facility] Work Phone: 11-01-2023 Evaluation + Plan note Associated Problem(s): Benign essential hypertension Stable and controlled on amlodipine and BenzePril no issues at this time Continue to follow-up yearlyril [facility] Work Phone: 10-31-2023 Laboratory comment Anthony (Report) Cervical cytology is a screening procedure primarily for squamous cancers and precursors and has associated false-negative and false-positives results as evidenced by published data. Your patient's test should be interpreted in this context, together with the patient's history and clinical findings. Regular sampling and follow-up of unexplained clinical signs and symptoms are recommended to minimize false negative results. [facility] 10-13-2023 History of Present illness Narrative Subjective Reason for Visit: Yee Levin is an 63 y.o. female here for a Medicare Wellness visit. Past Medical, Surgical, and Family History reviewed and updated in chart. Reviewed all medications by prescribing practitioner or clinical pharmacist (such as prescriptions, OTCs, herbal therapies and supplements) and documented in the medical record. Hypertension This is a chronic problem. The current episode started more than 1 year ago. The problem is controlled. Pertinent negatives include no anxiety, blurred vision, chest pain, headaches, malaise/fatigue, neck pain, orthopnea, palpitations, peripheral edema, PND, shortness of breath or sweats. There are no associated agents to hypertension. Risk factors for coronary artery disease include dyslipidemia, family history and post-menopausal state. Past treatments include SUDHAKAR inhibitors and calcium channel blockers. The current treatment provides significant improvement. There are no compliance problems. There is no history of angina, kidney disease, CAD/ID, CVA, heart failure, left ventricular hypertrophy, PVD or retinopathy. There is no history of chronic renal disease, coarctation of the aorta, hyperaldosteronism, hypercortisolism, hyperparathyroidism, a hypertension causing med, pheochromocytoma, renovascular disease, sleep apnea or a thyroid problem. Hyperlipidemia This is a chronic problem. The current episode started more than 1 year ago. The problem is controlled. Recent lipid tests were reviewed and are variable. She has no history of chronic renal disease, diabetes, hypothyroidism, liver disease, obesity or nephrotic syndrome. There are no known factors aggravating her hyperlipidemia. Pertinent negatives include no chest pain, focal sensory loss, focal weakness, leg pain, myalgias or shortness of breath. Current antihyperlipidemic treatment includes exercise, diet change and statins. The current treatment provides significant improvement of lipids. There are no compliance problems. Risk factors for coronary artery disease include dyslipidemia, family history, hypertension and post-menopausal. Patient Self Assessment of Health Status Patient Self Assessment: Good Nutrition and Exercise Current Diet: Well Balanced Diet Adequate Fluid Intake: Yes Caffeine: Yes Exercise Frequency: Infrequently Functional Ability/Level of Safety Cognitive Impairment Observed: No cognitive impairment observed Home Safety Risk Factors: None Patient Care Team: Esthela Branham MD as PCP - General Esthela Branham MD as PCP - [facility] PCP Review of Systems Constitutional: Negative for malaise/fatigue. Eyes: Negative for blurred vision. Respiratory: Negative for shortness of breath. Cardiovascular: Negative for chest pain, palpitations, orthopnea and PND. Musculoskeletal: Negative for myalgias and neck pain. Neurological: Negative for focal weakness and headaches. Constitutional: no chills, no fever and no night sweats. Eyes: no blurred vision and no eyesight problems. ENT: no hearing loss, no nasal congestion, no nasal discharge, no hoarseness and no sore throat. Cardiovascular: no chest pain, no intermittent leg claudication, no lower extremity edema, no palpitations and no syncope. Respiratory: no cough, no shortness of breath during exertion, no shortness of breath at rest and no wheezing. Gastrointestinal: no abdominal pain, no blood in stools, no constipation, no diarrhea, no melena, no nausea, no rectal pain and no vomiting. Genitourinary: no dysuria, no change in urinary frequency, no urinary hesitancy, no feelings of urinary urgency and no vaginal discharge. Musculoskeletal: no arthralgias, no back pain and no myalgias. Integumentary: no new skin lesions and no rashes. Neurological: no difficulty walking, no headache, no limb weakness, no numbness and no tingling. Psychiatric: no anxiety, no depression, no anhedonia and no substance use disorders. Endocrine: no recent weight gain and no recent weight loss. Hematologic/Lymphatic: no tendency for easy bruising and no swollen glands . Medicare Wellness Visit Billing Compliance Not Met *This is a visual tool to show completion of required items on the day of the visit. Green checks will only appear on the date of visit. Objective Vitals: BP 138/70 Pulse 78 Ht 1.651 m (5' 5 ) Wt 72.1 kg (159 lb) LMP 10/02/2014 (Approximate) SpO2 97% BMI 26.46 kg/m Physical Exam The patient appeared well nourished and normally developed. Vital signs as documented. Head exam is unremarkable. No scleral icterus or corneal arcus noted. Pupils are equal round reactive to light extraocular movements are intact no hemorrhages noted on funduscopic exam mouth mucous membranes are moist no exudates ears canals clear TMs are reyes pearly not injected nose no rhinorrhea or epistaxis Neck is without jugular venous distension, thyromegaly, or carotid bruits. Carotid upstrokes are brisk bilaterally. Lungs are clear to auscultation and percussion. Cardiac exam reveals the PMI to be normally sized and situated. Rhythm is regular. First and second heart sounds normal. No murmurs, rubs or gallops. Abdominal exam reveals normal bowel sounds, no masses, no organomegaly and no aortic enlargement. Extremities are nonedematous and both femoral and pedal pulses are normal. Neurologic exam DTRs are equal bilaterally no focal deficits strength is symmetrical heme lymph no palpable lymph nodes in the neck axilla or groin breasts no masses discharge axillary masses or asymmetry external genitalia unremarkable no adnexal tenderness or masses no cervicitis cervical motion tenderness or uterine enlargement Assessment/Plan Problem List Items Addressed This Visit Medicare annual wellness visit, initial - Primary Current Assessment & Plan Pap today Continue annual exams Keratoconjunctivitis sicca (CMS/HCC) Current Assessment & Plan Stable based on symptoms and exam Continue to follow-up with rheumatology Benign essential hypertension Current Assessment & Plan Stable and controlled on amlodipine and BenzePril no issues at this time Continue to follow-up yearlyril Relevant Medications amLODIPine-benazepriL (Lotrel) 5-10 mg capsule Other Relevant Orders Comprehensive Metabolic Panel Hyperlipidemia Current Assessment & Plan Stable and controlled on atorvastatin Continue low-cholesterol diet No issues at this time Follow-up yearly Relevant Medications atorvastatin (Lipitor) 20 mg tablet Other Relevant Orders Lipid Panel Prediabetes Relevant Orders Hemoglobin A1C Other Visit Diagnoses Postmenopausal state Relevant Orders XR DEXA bone density Encounter for screening mammogram for breast cancer Relevant Orders BI mammo bilateral screening tomosynthesis Need for hepatitis C screening test Relevant Orders Hepatitis C antibody Cervical cancer screening Relevant Orders THINPREP PAP TEST (Completed) documented in this encounter [facility] Work Phone: Evaluation note Diagnosis Medicare annual wellness visit, initial- Primary Keratoconjunctivitis sicca (CMS/HCC) Sicca syndrome Mixed hyperlipidemia Benign essential hypertension Essential hypertension, benign Postmenopausal state Asymptomatic postmenopausal status (age-related) (natural) Encounter for screening mammogram for breast cancer Need for hepatitis C screening test Special screening examination for other specified viral diseases Cervical cancer screening Screening for malignant neoplasm of the cervix Prediabetes Other abnormal glucose documented in this encounter [facility] Work Phone: Evaluation note* Diagnosis Onset Date Resolution Status Admit Date Delinquent immunization status acute October 14, 2024 9:00am Hyperlipidemia acute October 142024 9:00am Hypertension acute October 9:00am Paresthesia and pain of both upper extremities acute October 14, 2024 9:00am [facility] Work Phone: History of Present illness Narrative* Patient is a 61 y/o female with a history of HTN and HLD who presents here today for an annual wellness exam. Patient reports she is doing well. * Patient complains of trouble sleeping. She reports she will either be unable to sleep or will wake up multiple times. * Patient complains of broken blood vessel in her right eye. She reports symptoms are intermittent. Patient denies pain or impaired vision. * Patient complains of neck stiffness and tightness. She has been doing arm stretches with some relief. She reports she looks at computer screen at work. * Patient complains of difficulty remembering things. She states she will forget the names of items but it will come to her eventually. Patient denies family history of dementia. * Patient reports some depression since she is retiring from her dream job; she reports her symptoms are controlled. She states she is up and functional. 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 * Patient reports she saw eye doctor in January and was prescribed Restasis for dry eyes. Medication is optimally controlling symptoms. * Patient reports she saw applications project manager in May for dermatitis on her face; she had cancer screening. She was prescribed cream which resolved symptoms. She states symptoms return when it's dry but cream helps. * Patient saw orthopedic radiologic technologist since last office visit for evaluation of right foot ache. She reports she has been doing physical therapy exercises which is helping managing symptoms. Patient denies falls. * Patient denies any hospital, ER or surgery since last office visit. She has received both doses of the covid vaccine and the booster. She completed colon cancer screening on July 2020. She states she is due for a mammogram. * Patient is taking amlodipine, Restasis and cholesterol medication as prescribed and denies any adverse reactions. She reports her blood pressure is stable. Patient complains of chronic cough due to amlodipine but states she can live with her symptoms since her blood pressure is controlled. [facility] Work Phone: History of Present illness Narrative* there are no concerns today. The patient's health since the last visit is described as good. She has regular dental visits. She denies vision problems. She denies hearing loss. Immunizations status: up to date. * Lifestyle: She consumes a diverse and healthy diet. She does not have any weight concerns. She exercises regularly. She does not use tobacco. She denies alcohol use. * Reproductive health: she reports normal menses. * Cervical cancer screening: cancer screening reviewed and current. * Breast cancer screening: cancer screening reviewed and current. * Patient is a 61 y/o female with a history of HTN and HLD who presents here today for an annual wellness exam. Patient reports she is doing well. * Patient complains of trouble sleeping. She reports she will either be unable to sleep or will wake up multiple times. * Patient complains of broken blood vessel in her right eye. She reports symptoms are intermittent. Patient denies pain or impaired vision. * Patient complains of neck stiffness and tightness. She has been doing arm stretches with some relief. She reports she looks at computer screen at work. * Patient complains of difficulty remembering things. She states she will forget the names of items but it will come to her eventually. Patient denies family history of dementia. * Patient reports some depression since she is retiring from her dream job; she reports her symptoms are controlled. She states she is up and functional. 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 * Patient reports she saw eye doctor in January and was prescribed Restasis for dry eyes. Medication is optimally controlling symptoms. * Patient reports she saw applications project manager in May for dermatitis on her face; she had cancer screening. She was prescribed cream which resolved symptoms. She states symptoms return when it's dry but cream helps. * Patient saw orthopedic radiologic technologist since last office visit for evaluation of right foot ache. She reports she has been doing physical therapy exercises which is helping managing symptoms. Patient denies falls. * Patient denies any hospital, ER or surgery since last office visit. She has received both doses of the covid vaccine and the booster. She completed colon cancer screening on July 2020. She states she is due for a mammogram. * Patient is taking amlodipine, Restasis and cholesterol medication as prescribed and denies any adverse reactions. She reports her blood pressure is stable. Patient complains of chronic cough due to amlodipine but states she can live with her symptoms since her blood pressure is controlled. -[facility] Work Phone: History of Present illness Narrative* there are no concerns today. The patient's health since the last visit is described as good. She has regular dental visits. She denies vision problems. She denies hearing loss. Immunizations status: up to date. * Lifestyle: She consumes a diverse and healthy diet. She does not have any weight concerns. She exercises regularly. She does not use tobacco. She denies alcohol use. * Reproductive health: she reports normal menses. * Cervical cancer screening: cancer screening reviewed and current. * Breast cancer screening: cancer screening reviewed and current. [facility] Work Phone: History of Present illness Narrative* there are no concerns today. The patient's health since the last visit is described as good. She has regular dental visits. She denies vision problems. She denies hearing loss. Immunizations status: up to date. * Lifestyle: She consumes a diverse and healthy diet. She does not have any weight concerns. She exercises regularly. She does not use tobacco. She denies alcohol use. * Reproductive health: she reports normal menses. * Cervical cancer screening: cancer screening reviewed and current. * Breast cancer screening: cancer screening reviewed and current. * 62 year old here for annual wellness exam and followup chronic conditions * No hospital ER visits or surgery * No new family history patient is a non-smoker * Exercises regularly * She has hypertension hyperlipidemia tolerating her medicines well with no problems or side effects is here for follow-up for that as well * No angina palpitations or syncope no lateralizing weakness patient is postmenopausal no new concerns [facility] Work Phone: Hospital Discharge instructionsAmbulatory Orders* Referral to Neurology Location: None [facility] Work Phone: Summary Purpose Family History Unknown Family Member Name Dates Details Family history of cardiac di sorder(V17.49, Z82.49) Comments:Other Status:Active Family history of kidney dis ease(V18.69, Z84.1) Comments:Other Status:Active Mother Name Dates Details Family history of ASHD (irwin riosclerotic heart disease)(414.00, I25.10) Status:Active Unknown Family Member Name Dates Details Family history of cardiac di sorder(V17.49, Z82.49) Comments:Other Status:Active Family history of kidney dis ease(V18.69, Z84.1) Comments:Other Status:Active Mother Name Dates Details Family history of ASHD (irwin riosclerotic heart disease)(414.00, I25.10) Status:Active Unknown Family Member Name Dates Details Family history of cardiac di sorder(V17.49, Z82.49) Comments:Other Status:Active Family history of kidney dis ease(V18.69, Z84.1) Comments:Other Status:Active Mother Name Dates Details Family history of ASHD (irwin riosclerotic heart disease)(414.00, I25.10) Status:Active Unknown Family Member Name Dates Details Family history of cardiac di sorder(V17.49, Z82.49) Comments:Other Status:Active Family history of kidney dis ease(V18.69, Z84.1) Comments:Other Status:Active Mother Name Dates Details Family history of ASHD (irwin riosclerotic heart disease)(414.00, I25.10) Status:Active Unknown Family Member Name Dates Details Family history of cardiac di sorder(V17.49, Z82.49) Comments:Other Status:Active Family history of kidney dis ease(V18.69, Z84.1) Comments:Other Status:Active Mother Name Dates Details Family history of ASHD (irwin riosclerotic heart disease)(414.00, I25.10) Status:Active Unknown Family Member Name Dates Details Family history of cardiac di sorder(V17.49, Z82.49) Comments:Other Status:Active Family history of kidney dis ease(V18.69, Z84.1) Comments:Other Status:Active Mother Name Dates Details Family history of ASHD (iriwn riosclerotic heart disease)(414.00, I25.10) Status:Active Unknown Family Member Name Dates Details Family history of cardiac di sorder(V17.49, Z82.49) Comments:Other Status:Active Family history of kidney dis ease(V18.69, Z84.1) Comments:Other Status:Active Mother Name Dates Details Family history of ASHD (irwin riosclerotic heart disease)(414.00, I25.10) Status:Active Unknown Family Member Name Dates Details Family history of cardiac di sorder(V17.49, Z82.49) Comments:Other Status:Active Family history of kidney dis ease(V18.69, Z84.1) Comments:Other Status:Active Mother Name Dates Details Family history of ASHD (irwin riosclerotic heart disease)(414.00, I25.10) Status:Active Unknown Family Member Name Dates Details Family history of cardiac di sorder(V17.49, Z82.49) Comments:Other Status:Active Family history of kidney dis ease(V18.69, Z84.1) Comments:Other Status:Active Mother Name Dates Details Family history of ASHD (irwin riosclerotic heart disease)(414.00, I25.10) Status:Active Unknown Family Member Name Dates Details Family history of cardiac di sorder: Other(V17.49, Z82.49) Status:Active Family history of kidney dis ease: Other(V18.69, Z84.1) Status:Active ASHD (arteriosclerotic heart disease): Mother Status:Active Unknown Family Member Name Dates Details Family history of cardiac di sorder: Other(V17.49, Z82.49) Status:Active Family history of kidney dis ease: Other(V18.69, Z84.1) Status:Active ASHD (arteriosclerotic heart disease): Mother Status:Active Unknown Family Member Name Dates Details Family history of cardiac di sorder: Other(V17.49, Z82.49) Status:Active Family history of kidney dis ease: Other(V18.69, Z84.1) Status:Active ASHD (arteriosclerotic heart disease): Mother Status:Active Unknown Family Member Name Dates Details ASHD (arteriosclerotic heart disease): Mother Status:Active Family history of kidney dis ease: Other(V18.69, Z84.1) Status:Active Family history of cardiac di sorder: Other(V17.49, Z82.49) Status:Active Unknown Family Member Name Dates Details Family history of cardiac di sorder: Other(V17.49, Z82.49) Status:Active Family history of kidney dis ease: Other(V18.69, Z84.1) Status:Active ASHD (arteriosclerotic heart disease): Mother Status:Active Unknown Family Member Name Dates Details Family history of cardiac di sorder: Other(V17.49, Z82.49) Status:Active Family history of kidney dis ease: Other(V18.69, Z84.1) Status:Active ASHD (arteriosclerotic heart disease): Mother Status:Active Unknown Family Member Name Dates Details Family history of cardiac di sorder: Other(V17.49, Z82.49) Status:Active Family history of kidney dis ease: Other(V18.69, Z84.1) Status:Active ASHD (arteriosclerotic heart disease): Mother Status:Active Unknown Family Member Name Dates Details Family history of cardiac di sorder: Other(V17.49, Z82.49) Status:Active Family history of kidney dis ease: Other(V18.69, Z84.1) Status:Active ASHD (arteriosclerotic heart disease): Mother Status:Active Relationship Condition Age at Onset Recorded Date/T corin mother Atrial fibrillation Unknown brother Atrial fibrillation Unknown Advance Directives Documents on File Type Date Recorded 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 Living Will 11/05/2021 Advance Directives and Living Will 12/08/2016 Living Will 12/31/2012 Advance Directive Response Recorded Date/ Time Advance Directives Yes October 14, 2024 9:10am Chief Complaint CPECPEwellness examwellness exam Reason for Referral Specialty Diagnoses / Procedures Referred By Deidra padgett Referred To Contact Radiology Diagnoses Encounter for screening mammogram for breast cancer Procedures BI mammo bilateral screening [place] [address] [place] [address] Referral ID Status Reason Start Date Expiration Date Visits Requested Visits Authorized [id number] Authorized Perform Procedure 10/13/2023 10/12/2024 1 1 Specialty Diagnoses / Procedures Referred By Deidra padgett Referred To Contact Radiology Diagnoses Postmenopausal state Procedures [place]R [place] [address] [place] [address] Referral ID Status Reason Start Date Expiration Date Visits Requested Visits Authorized Pending Review Perform Procedure 10/13/2023 10/12/2024 1 1 Chief Complaint and Reason for Visit Chief Complaint Admit Date est care October 14, 2024 9 :00am Reason for Visit Admit Date Delinquent immunization status October 022024 9:00am Hyperlipidemia October 14, 2024 9 :00am Hypertension October 14, 2024 9 :00am Paresthesia and pain of both upper extre mities October 14, 2024 9:00am Additional Source Comments INFORMATION SOURCE (unrecogn ized section and content) DATE CREATED AUTHOR 03/27/2018 [facility] DATE CREATED AUTHOR AUTHOR'S ORGANIZ ATION 11/03/2022 [facility] DATE CREATED AUTHOR AUTHOR'S ORGANIZ ATION 02/11/2023 [facility] DATE CREATED AUTHOR AUTHOR'S ORGANIZ ATION 02/11/2023 [employer] DATE CREATED AUTHOR AUTHOR'S ORGANIZ ATION 10/14/2023 [facility] DATE CREATED AUTHOR AUTHOR'S ORGANIZ ATION 11/17/[address] 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 Specialty Start [place] [address] [facility] [address] [place] [address] PCP - General 09/23/10 [place] [address] [facility] [address] [place] [address] PCP - Richelle ESPINOZA PCP 10/02/21 Team Status: Active Member Role Status Dates Arpita Quiñones APRN LOG ROLLER-C Primary Care Provider Active Team Status: Inactive Member Role Status Dates Arpita Quiñones APRN LOG ROLLER-C Primary Care Provider, Attending Provider Active Start: October 14, 2024 End: October 14, 2024 Goals (unrecognized section and content) Goals may be documented in a n alternate section FOR RECORDS PERTAINING TO PATIENTS WHO ARE OR HAVE BEEN ENROLLED IN A CHEMICAL DEPENDENCY/SUBSTANCEABUSE PROGRAM, SOME INFORMATION MAY BE OMITTED. This clinical summary was aggregated from multiple sources. Caution should be exercised in using it in the provision of clinical care. This summary normalizes information from multiple sources, and as a consequence, information in this document may materially change the coding, format and clinical context of patient data. In addition, data may be omitted in some cases. CLINICAL DECISIONS SHOULD BE BASED ON THE PRIMARY CLINICAL RECORDS. [facility]. provides no warranty or guarantee of the accuracy or completeness of information in this document.
--- NOTE | 2024-10-25 09:49 | US_ITS ---
The [address] [address] Patient Name: TYE OTT MRN: [id number] date: 1960 Sex: F Assigned Patient Location: US Current Patient Location: US Accession/Order Number: [id number] Exam Date: 10/25/2024 10:12 Report Date: 10/25/2024 11:46 At the request of: LIYAH IRIZARRY Procedure: US right upper quadrant EXAM: US right upper quadrant HISTORY: Abdominal Pain, Nausea And Vomiting COMPARISON: None. TECHNIQUE: Real-time Limited abdomen ultrasound. Findings: Evaluation of pancreas is limited due to overlying bowel gas. The visualized portions unremarkable. The liver measures 10.9 cm. The parenchyma appears coarsened and somewhat echogenic. No focal intrahepatic mass. The main portal vein is patent and demonstrates hepatopedal flow. The gallbladder is fluid-filled and unremarkable without evidence of stones, wall thickening or pericholecystic fluid. The technologist reports a negative sonographic Esparza's sign. No biliary ductal dilatation. The common bile duct measures 0.3 cm. The right kidney measures 9.6 cm. There is good corticomedullary differentiation. No renal stones or collecting system dilatation. No focal mass or perinephric fluid collection. US/US right upper quadrant IMPRESSION: 1. Unremarkable sonographic appearance of the right upper quadrant. Electronically authenticated by: ELE RAMIREZ Date: 10/25/2024 11:46
== END 2024-10-25 09:43 | disposition home or self-care (01) ==
LOC: US 09:43
PROVIDERS: PCP Nurse Practitioner Family; Visit Provider Nurse Practitioner Family
DX: R10.9 Unspecified abdominal pain (principal); R11.2 Nausea with vomiting, unspecified
CPT/HCPCS: 76705

== ENCOUNTER 2025-01-24 10:37 | Outpatient (OUT) | payer MEDICARE, BC, SELFPAY ==
[2025-01-24 11:57] LABS: Alanine Aminotransferase 37 U/L (14-59); Albumin Globulin Ratio 1.1; Albumin Level 3.5 g/dL (3.4-5.0); Alkaline Phosphatase 110 U/L (46-116); Anion Gap 11.6; Aspartate Amino Transferase 19 U/L (15-37); Bilirubin Total 0.4 mg/dL (0.2-1.0); Calcium 8.9 mg/dL (8.5-10.1); Carbon Dioxide 29.7 mmol/L (21.0-32.0); Chloride 100 mmol/L (98-107); Estimated GFR (African America >60 (>=60 mL/min/1.73m^2); Estimated GFR (Non-African Ame >60 (>=60 mL/min/1.73m^2); Globulin 3.3 g/dL; Glucose 85 mg/dL (74-106); Potassium 4.3 mmol/L (3.5-5.1); Sodium 137 mmol/L (136-145); Total Protein 6.8 g/dL (6.4-8.2)
== END 2025-01-24 10:38 | disposition home or self-care (01) ==
PROVIDERS: PCP Nurse Practitioner Family; Visit Provider Nurse Practitioner Family
DX: N18.31 Chronic kidney disease, stage 3a (principal)
CPT/HCPCS: 36415; 80053